=== PATIENT | male | born 1935 | race Caucasian/White ===

== ENCOUNTER 2023-04-05 13:17 | Outpatient (RCR) | payer MEDICARE, BC, SELFPAY | END 2023-04-05 23:59 | disposition home or self-care (01) | LOC: CRHB 13:17 | PROVIDERS: ATTENDING PHYSICIAN Internal Medicine Cardiovascular Disease; FAMILY PHYSICIAN Registered Nurse Oncology | DX: I25.10 Atherosclerotic heart disease of native coronary artery without angina pectoris (principal); Z95.5 Presence of coronary angioplasty implant and graft; I42.9 Cardiomyopathy, unspecified | CPT/HCPCS: G0422; G0423 ==

== ENCOUNTER 2023-05-03 14:14 | Outpatient (RCR) | payer MEDICARE, BC, SELFPAY ==
[2023-05-05 10:34] LABS: HDL Cholesterol 50 mg/dl; LDL Cholesterol, Calculated 43 mg/dl; Total Cholesterol 112 mg/dl (50-199); Triglyceride 95 mg/dl (10-149); Very Low Density Lipoprotein 19 mg/dl (0-30)
== END 2023-05-03 23:59 | disposition home or self-care (01) ==
LOC: CRHB 14:14
PROVIDERS: Internal Medicine Cardiovascular Disease; ATTENDING PHYSICIAN Internal Medicine Cardiovascular Disease; FAMILY PHYSICIAN Internal Medicine Geriatric Medicine
DX: I25.10 Atherosclerotic heart disease of native coronary artery without angina pectoris (principal); Z95.5 Presence of coronary angioplasty implant and graft; I42.9 Cardiomyopathy, unspecified
CPT/HCPCS: 80061; G0422; G0423

== ENCOUNTER → 2023-05-05 07:16 | Outpatient (REF) | payer MEDICARE, BC, SELFPAY ==
[2023-05-05 08:08] LABS: % Basophils 0.9 % (0-2); % Eosinophils 3.7 % (0-6); % Immature Granulocytes 2.1 % (0-0.5); % Lymphocytes 12.1 % (20.5-51.1); % Monocytes 12.7 % (1.7-9.3); % Neutrophils 68.5 % (42.2-75.2); Absolute Basophils 0.1 10^3/uL (0-0.2); Absolute Eosinophils 0.4 10^3/uL (0-0.7); Absolute Immature Granulocytes 0.2 10^3/uL (0-0.05); Absolute Lymphocytes 1.1 10^3/uL (1.2-3.4); Absolute Monocytes 1.2 10^3/uL (0.1-0.6); Absolute Neutrophils 6.4 10^3/uL (1.4-6.5); Hematocrit 32.7 % (39.0-52.0); Hemoglobin 10.3 g/dL (13.0-18.0); Mean Corp Hgb Conc. 31.5 g/dL (33.0-37.0); Mean Corpuscular Hgb 28.7 pg (27.0-31.0); Mean Corpuscular Volume 91.1 fL (80.0-94.0); Mean Platelet Volume 9.7 fL (7.4-10.4); Nucleated Red Blood Cells % 0 % (-); Platelet Count 396 10^3/uL (130-400); Red Blood Cell Count 3.59 10^6/uL (4.70-6.10); White Blood Cell Count 9.4 10^3/uL (4.8-10.8)
[2023-05-05 10:34] LABS: ALT (SGPT) 19 U/L (0-50); AST (SGOT) 34 U/L (17-59); Albumin 3.2 g/dl (3.5-5.0); Alkaline Phosphatase 151 U/L (38-126); Blood Urea Nitrogen 26 mg/dl (9-20); Calcium 9.4 mg/dl (8.4-10.2); Carbon Dioxide 28 mmol/L (22-30); Chloride 101 mmol/L (98-107); Glucose 109 mg/dl (70-99); Sodium 137 mmol/L (135-145); Total Bilirubin 0.6 mg/dl (0.2-1.3); Total Protein 5.9 g/dl (6.3-8.2); eGFR 58.17
== END ==
LOC: REG 07:16
PROVIDERS: ATTENDING PHYSICIAN Internal Medicine Hematology & Oncology; FAMILY PHYSICIAN Internal Medicine Geriatric Medicine
DX: C61 Malignant neoplasm of prostate (principal)
CPT/HCPCS: 36415; 80053; 84153; 85025

== ENCOUNTER 2023-05-31 13:13 | Outpatient (RCR) | payer MEDICARE, BC, SELFPAY | END 2023-05-31 23:59 | disposition home or self-care (01) | LOC: CRHB 13:13 | PROVIDERS: ATTENDING PHYSICIAN Internal Medicine Cardiovascular Disease; FAMILY PHYSICIAN Internal Medicine Geriatric Medicine | DX: I25.10 Atherosclerotic heart disease of native coronary artery without angina pectoris (principal); Z95.5 Presence of coronary angioplasty implant and graft | CPT/HCPCS: G0422; G0423 ==

== ENCOUNTER → 2023-06-02 07:02 | Outpatient (REF) | payer MEDICARE, BC, SELFPAY ==
[2023-06-02 07:55] LABS: % Basophils 0.9 % (0-2); % Eosinophils 6.6 % (0-6); % Immature Granulocytes 3.1 % (0-0.5); % Lymphocytes 14.9 % (20.5-51.1); % Monocytes 11.2 % (1.7-9.3); % Neutrophils 63.3 % (42.2-75.2); Absolute Basophils 0.1 10^3/uL (0-0.2); Absolute Eosinophils 0.5 10^3/uL (0-0.7); Absolute Immature Granulocytes 0.2 10^3/uL (0-0.05); Absolute Lymphocytes 1.1 10^3/uL (1.2-3.4); Absolute Monocytes 0.8 10^3/uL (0.1-0.6); Absolute Neutrophils 4.8 10^3/uL (1.4-6.5); Hematocrit 33.9 % (39.0-52.0); Hemoglobin 10.6 g/dL (13.0-18.0); Mean Corp Hgb Conc. 31.3 g/dL (33.0-37.0); Mean Corpuscular Hgb 28.8 pg (27.0-31.0); Mean Corpuscular Volume 92.1 fL (80.0-94.0); Mean Platelet Volume 9.6 fL (7.4-10.4); Nucleated Red Blood Cells % 0 % (-); Platelet Count 328 10^3/uL (130-400); Red Blood Cell Count 3.68 10^6/uL (4.70-6.10); Red Cell Dist. Width 16.7 % (11.5-14.5); White Blood Cell Count 7.5 10^3/uL (4.8-10.8)
[2023-06-02 08:27] LABS: ALT (SGPT) < 10 U/L (0-50); AST (SGOT) 19 U/L (17-59); Albumin 3.7 g/dl (3.5-5.0); Alkaline Phosphatase 121 U/L (38-126); Blood Urea Nitrogen 25 mg/dl (9-20); Calcium 9.4 mg/dl (8.4-10.2); Carbon Dioxide 25 mmol/L (22-30); Chloride 109 mmol/L (98-107); Glucose 122 mg/dl (70-99); Potassium 4.1 mmol/L (3.5-5.1); Sodium 139 mmol/L (135-145); Total Bilirubin 0.4 mg/dl (0.2-1.3); Total Protein 6.3 g/dl (6.3-8.2); eGFR > 60.00
== END ==
LOC: REG 07:02
PROVIDERS: ATTENDING PHYSICIAN Internal Medicine Hematology & Oncology; OTHER PHYSICIAN Internal Medicine Cardiovascular Disease; REFERRING PHYSICIAN Internal Medicine Geriatric Medicine
DX: C61 Malignant neoplasm of prostate (principal)
CPT/HCPCS: 36415; 80053; 84153; 85025

== ENCOUNTER → 2023-06-30 07:28 | Outpatient (REF) | payer MEDICARE, BC, SELFPAY ==
[2023-06-30 08:25] LABS: % Basophils 0.7 % (0-2); % Eosinophils 4.8 % (0-6); % Immature Granulocytes 1.6 % (0-0.5); % Lymphocytes 13.1 % (20.5-51.1); % Monocytes 10.4 % (1.7-9.3); % Neutrophils 69.4 % (42.2-75.2); Absolute Basophils 0.1 10^3/uL (0-0.2); Absolute Eosinophils 0.3 10^3/uL (0-0.7); Absolute Immature Granulocytes 0.1 10^3/uL (0-0.05); Absolute Lymphocytes 0.9 10^3/uL (1.2-3.4); Absolute Monocytes 0.7 10^3/uL (0.1-0.6); Absolute Neutrophils 4.9 10^3/uL (1.4-6.5); Hematocrit 34.6 % (39.0-52.0); Hemoglobin 10.8 g/dL (13.0-18.0); Mean Corp Hgb Conc. 31.2 g/dL (33.0-37.0); Mean Corpuscular Hgb 29.3 pg (27.0-31.0); Mean Platelet Volume 9.2 fL (7.4-10.4); Nucleated Red Blood Cells % 0 % (-); Platelet Count 370 10^3/uL (130-400); Red Blood Cell Count 3.68 10^6/uL (4.70-6.10); Red Cell Dist. Width 16.8 % (11.5-14.5); White Blood Cell Count 7.1 10^3/uL (4.8-10.8)
[2023-06-30 09:07] LABS: ALT (SGPT) < 10 U/L (0-50); AST (SGOT) 20 U/L (17-59); Albumin 3.7 g/dl (3.5-5.0); Alkaline Phosphatase 122 U/L (38-126); Blood Urea Nitrogen 22 mg/dl (9-20); Calcium 9.2 mg/dl (8.4-10.2); Carbon Dioxide 25 mmol/L (22-30); Chloride 106 mmol/L (98-107); Glucose 117 mg/dl (70-99); Potassium 4.7 mmol/L (3.5-5.1); Sodium 137 mmol/L (135-145); Total Bilirubin 0.4 mg/dl (0.2-1.3); Total Protein 6.2 g/dl (6.3-8.2); eGFR > 60.00
== END ==
LOC: REG 07:28
PROVIDERS: ATTENDING PHYSICIAN Internal Medicine Hematology & Oncology; FAMILY PHYSICIAN Internal Medicine Geriatric Medicine
DX: C61 Malignant neoplasm of prostate (principal)
CPT/HCPCS: 36415; 80053; 84153; 85025

== ENCOUNTER 2023-07-05 13:38 | Outpatient (RCR) | payer MEDICARE, BC, SELFPAY | END 2023-07-05 23:59 | disposition home or self-care (01) | LOC: CRHB 13:38 | PROVIDERS: ATTENDING PHYSICIAN Internal Medicine Cardiovascular Disease; FAMILY PHYSICIAN Internal Medicine Geriatric Medicine | DX: I25.10 Atherosclerotic heart disease of native coronary artery without angina pectoris (principal); Z95.5 Presence of coronary angioplasty implant and graft | CPT/HCPCS: G0422; G0423 ==

== ENCOUNTER 2023-07-07 09:56 | Outpatient (RCR) | payer MEDICARE, BC, SELFPAY | END 2023-07-07 23:59 | disposition home or self-care (01) | LOC: CRHB 09:56 | PROVIDERS: ATTENDING PHYSICIAN Internal Medicine Cardiovascular Disease; FAMILY PHYSICIAN Internal Medicine Geriatric Medicine | DX: I25.10 Atherosclerotic heart disease of native coronary artery without angina pectoris (principal) | CPT/HCPCS: G0422; G0423 ==

== ENCOUNTER → 2023-07-28 07:25 | Outpatient (REF) | payer MEDICARE, BC, SELFPAY ==
[2023-07-28 08:03] LABS: % Basophils 0.8 % (0-2); % Eosinophils 4.6 % (0-6); % Immature Granulocytes 1.5 % (0-0.5); % Lymphocytes 16.3 % (20.5-51.1); % Monocytes 11.4 % (1.7-9.3); % Neutrophils 65.4 % (42.2-75.2); Absolute Basophils 0.1 10^3/uL (0-0.2); Absolute Eosinophils 0.4 10^3/uL (0-0.7); Absolute Immature Granulocytes 0.1 10^3/uL (0-0.05); Absolute Lymphocytes 1.4 10^3/uL (1.2-3.4); Absolute Neutrophils 5.5 10^3/uL (1.4-6.5); Hematocrit 35.1 % (39.0-52.0); Mean Corp Hgb Conc. 31.3 g/dL (33.0-37.0); Mean Corpuscular Hgb 29.6 pg (27.0-31.0); Mean Corpuscular Volume 94.4 fL (80.0-94.0); Mean Platelet Volume 9.4 fL (7.4-10.4); Nucleated Red Blood Cells % 0 % (-); Platelet Count 434 10^3/uL (130-400); Red Blood Cell Count 3.72 10^6/uL (4.70-6.10); Red Cell Dist. Width 15.7 % (11.5-14.5); White Blood Cell Count 8.4 10^3/uL (4.8-10.8)
[2023-07-28 08:51] LABS: ALT (SGPT) < 10 U/L (0-50); AST (SGOT) 16 U/L (17-59); Albumin 3.7 g/dl (3.5-5.0); Alkaline Phosphatase 118 U/L (38-126); Blood Urea Nitrogen 28 mg/dl (9-20); Calcium 9.2 mg/dl (8.4-10.2); Carbon Dioxide 23 mmol/L (22-30); Chloride 105 mmol/L (98-107); Glucose 113 mg/dl (70-99); Potassium 4.5 mmol/L (3.5-5.1); Sodium 139 mmol/L (135-145); Total Bilirubin 0.4 mg/dl (0.2-1.3); Total Protein 6.3 g/dl (6.3-8.2); eGFR > 60.00
[2023-07-28 09:36] LABS: Glycohemoglobin (HgbA1c) 6.3 % (4.0-5.6)
== END ==
LOC: REG 07:25
PROVIDERS: ATTENDING PHYSICIAN Internal Medicine Hematology & Oncology; FAMILY PHYSICIAN Nurse Practitioner Family
DX: C61 Malignant neoplasm of prostate (principal); E11.59 Type 2 diabetes mellitus with other circulatory complications
CPT/HCPCS: 36415; 80053; 83036; 85025

== ENCOUNTER → 2023-08-24 07:59 | Outpatient (REF) | payer MEDICARE, BC, SELFPAY ==
[2023-08-24 08:54] LABS: % Basophils 0.5 % (0-2); % Eosinophils 4.7 % (0-6); % Immature Granulocytes 3.1 % (0-0.5); % Lymphocytes 9.2 % (20.5-51.1); % Monocytes 9.5 % (1.7-9.3); Absolute Basophils 0.1 10^3/uL (0-0.2); Absolute Eosinophils 0.4 10^3/uL (0-0.7); Absolute Immature Granulocytes 0.3 10^3/uL (0-0.05); Absolute Lymphocytes 0.8 10^3/uL (1.2-3.4); Absolute Monocytes 0.9 10^3/uL (0.1-0.6); Absolute Neutrophils 6.7 10^3/uL (1.4-6.5); Hematocrit 31.8 % (39.0-52.0); Mean Corp Hgb Conc. 31.4 g/dL (33.0-37.0); Mean Corpuscular Hgb 29.4 pg (27.0-31.0); Mean Corpuscular Volume 93.5 fL (80.0-94.0); Mean Platelet Volume 9.6 fL (7.4-10.4); Nucleated Red Blood Cells % 0 % (-); Platelet Count 407 10^3/uL (130-400); White Blood Cell Count 9.1 10^3/uL (4.8-10.8)
[2023-08-24 10:01] LABS: ALT (SGPT) < 10 U/L (0-50); AST (SGOT) 19 U/L (17-59); Albumin 3.3 g/dl (3.5-5.0); Alkaline Phosphatase 107 U/L (38-126); Blood Urea Nitrogen 27 mg/dl (9-20); Calcium 9.5 mg/dl (8.4-10.2); Carbon Dioxide 26 mmol/L (22-30); Chloride 109 mmol/L (98-107); Glucose 107 mg/dl (70-99); Potassium 4.4 mmol/L (3.5-5.1); Sodium 142 mmol/L (135-145); Total Bilirubin 0.3 mg/dl (0.2-1.3); Total Protein 5.7 g/dl (6.3-8.2); eGFR > 60.00
[2023-08-24 10:20] LABS: Free T4 1.24 ng/dl (0.78-2.19)
[2023-08-24 10:33] LABS: TSH 2.51 uIU/ml (0.47-4.68)
== END ==
LOC: REG 07:59
PROVIDERS: ATTENDING PHYSICIAN Internal Medicine Hematology & Oncology; FAMILY PHYSICIAN Internal Medicine Geriatric Medicine; REFERRING PHYSICIAN Nurse Practitioner Family
DX: C61 Malignant neoplasm of prostate (principal); E03.8 Other specified hypothyroidism
CPT/HCPCS: 36415; 80053; 84153; 84439; 84443; 85025

== ENCOUNTER → 2023-09-20 07:20 | Outpatient (REF) | payer MEDICARE, BC, SELFPAY ==
[2023-09-20 09:35] LABS: ALT (SGPT) < 10 U/L (0-50); AST (SGOT) 18 U/L (17-59); Albumin 3.4 g/dl (3.5-5.0); Alkaline Phosphatase 133 U/L (38-126); Blood Urea Nitrogen 25 mg/dl (9-20); Calcium 9.7 mg/dl (8.4-10.2); Carbon Dioxide 24 mmol/L (22-30); Chloride 108 mmol/L (98-107); Glucose 122 mg/dl (70-99); Potassium 4.7 mmol/L (3.5-5.1); Sodium 140 mmol/L (135-145); Total Bilirubin 0.3 mg/dl (0.2-1.3); Total Protein 5.9 g/dl (6.3-8.2); eGFR > 60.00
== END ==
LOC: REG 07:20
PROVIDERS: ATTENDING PHYSICIAN Internal Medicine Hematology & Oncology; FAMILY PHYSICIAN Internal Medicine Geriatric Medicine
DX: C61 Malignant neoplasm of prostate (principal)
CPT/HCPCS: 36415; 80053

== ENCOUNTER → 2023-10-14 07:41 | Outpatient (REF) | payer MEDICARE, BC, SELFPAY ==
[2023-10-14 08:35] LABS: % Basophils 0.6 % (0-2); % Eosinophils 3.6 % (0-6); % Immature Granulocytes 4.4 % (0-0.5); % Monocytes 8.3 % (1.7-9.3); % Neutrophils 76.1 % (42.2-75.2); Absolute Basophils 0.1 10^3/uL (0-0.2); Absolute Eosinophils 0.5 10^3/uL (0-0.7); Absolute Immature Granulocytes 0.5 10^3/uL (0-0.05); Absolute Lymphocytes 0.9 10^3/uL (1.2-3.4); Absolute Neutrophils 9.4 10^3/uL (1.4-6.5); Hematocrit 27.7 % (39.0-52.0); Hemoglobin 8.6 g/dL (13.0-18.0); Mean Corpuscular Hgb 29.5 pg (27.0-31.0); Mean Corpuscular Volume 94.9 fL (80.0-94.0); Mean Platelet Volume 9.4 fL (7.4-10.4); Nucleated Red Blood Cells % 0 % (-); Platelet Count 493 10^3/uL (130-400); Red Blood Cell Count 2.92 10^6/uL (4.70-6.10); Red Cell Dist. Width 16.2 % (11.5-14.5); White Blood Cell Count 12.4 10^3/uL (4.8-10.8)
[2023-10-14 09:01] LABS: ALT (SGPT) < 10 U/L (0-50); AST (SGOT) 45 U/L (17-59); Albumin 3.4 g/dl (3.5-5.0); Alkaline Phosphatase 167 U/L (38-126); Blood Urea Nitrogen 23 mg/dl (9-20); Calcium 8.8 mg/dl (8.4-10.2); Carbon Dioxide 26 mmol/L (22-30); Chloride 105 mmol/L (98-107); Glucose 113 mg/dl (70-99); Potassium 4.5 mmol/L (3.5-5.1); Sodium 138 mmol/L (135-145); Total Bilirubin 0.3 mg/dl (0.2-1.3); eGFR > 60.00
== END ==
LOC: REG 07:41
PROVIDERS: ATTENDING PHYSICIAN Internal Medicine Hematology & Oncology; FAMILY PHYSICIAN Internal Medicine Geriatric Medicine
DX: C61 Malignant neoplasm of prostate (principal); K59.00 Constipation, unspecified; M54.50 Low back pain, unspecified
CPT/HCPCS: 36415; 80053; 84153; 85025

== ENCOUNTER → 2023-10-15 13:08 | Outpatient (REF) | payer MEDICARE, BC, SELFPAY ==
--- NOTE | 2023-10-15 14:00 | CARDSERVLU ---
Echocardiogram with Lumason completed after protocol screening completed. Allergies verified.
Patent IV site: __left FA___
IV site flushed with 0.9% NaCl pre and post administration.
Diluted bolus method utilized to enhance visualization of ventricular weiss.
Total volume given: ___3.5_ mL
Patient tolerated all procedures well without complications.
#22 jaya placed left FA. Lumason given. INT removed. dsg applied. pressure held. No bleeding noted.
== END ==
LOC: RCS 13:08
PROVIDERS: ATTENDING PHYSICIAN Internal Medicine Cardiovascular Disease; FAMILY PHYSICIAN Internal Medicine Geriatric Medicine
DX: I25.10 Atherosclerotic heart disease of native coronary artery without angina pectoris (principal)
CPT/HCPCS: 93306; Q9950

== ENCOUNTER 2023-10-27 01:09 | Inpatient (IN) | payer MEDICARE, BC, SELFPAY ==
[2023-10-27] VITALS (25 sets, daily range): BP systolic 107–165; BP diastolic 36–133; BMI 27.0; BMI 27.1
--- NOTE | 2023-10-27 00:21 | ED.GENMED ---
History of Present Illness
General
Chief Complaint: Weakness
Source: patient
Exam Limitations: none
Time Seen by Provider: 10/27/23 00:11
History of Present Illness
History of Present Illness:
This is a 88 year old male that is brought in by ambulance with c/o abd pain and vomiting. States that yesterday he did not eat kandi. Then today he eat one piece of toast, one piece of boloney, 2 waffles for dinner and around 9pm he had a milk
shake and by 9:30pm he vomited. States that it feels like someone kicked him in the gut. States that the wound on his right lower leg was from pulling his socks on and off. Denies any fever, chills, chest pain, SOB, diarrhea, black or bloody stool,
Headache, dizziness, urinary burning.
Past History
Past History
ED Past Medical History: Asthma, CAD, Cancer (Prostate CA), CHF, CVA, HTN, Hypercholesterolemia, NIDDM, Hypothyroidism and Other (BPH, pleural effusion drained, Back pain, PNA, Thyroid nodules)
ED Past Surgical History: Cardiac (Stents X 5), Orthopedic (right total knee, Back surgery, ), Tonsilectomy, Urological (TURP) and Other (right and left cataracts, TURP, hernia repair)
Social History
Tobacco: Non-smoker
Alcohol: Occasional
Drug: None
Personal:
Living: with family
Employment: Retired
Family History
Family History: Other (non contrib)
Review of Systems
Review of Systems
All Other Systems: ROS reviewed and negative except as documented in HPI and ROS
Constitutional: Reports no symptoms; Denies fever or chills
EENT: Reports no symptoms
Respiratory: Reports no symptoms; Denies cough or trouble breathing
Cardiac: Reports no symptoms; Denies chest pain
ABD/GI: Reports abdominal pain, nausea and vomiting; Denies diarrhea, bloody stools or black stools
: Reports no symptoms; Denies dysuria, frequency or urgency
Musculoskeletal: Reports no symptoms
Skin: Reports other (Open wound on the right lower leg)
Neurological: Reports no symptoms; Denies dizzy or headache
Psychiatric: Reports no symptoms
Phy Exam
General Physical Exam
General Presentation: no apparent distress
General age: appears stated age
General Skin: warm, dry and pale
General Habitus: elderly
General Mental: alert
General Hydration: appears well hydrated
ENT Exam
ENT Exam: pharynx normal and neck supple
Eye Exam
Eye Exam: EOMI
Cardiovascular Exam
Cardiovascular Exam: regular rate/rhythm and normal peripheral pulses
Pulmonary Exam
Pulmonary Exam: lungs clear, no respiratory distress, no rales, chest non tender, no crackles, no rhonchi, no wheezing and no cough
Gastrointestinal Exam
Gastrointestinal Exam: soft, no organomegaly, no pulsatile mass, non distended, tender (Mid abd tenderness with palpation) and other (Very hypoactive bowel sounds, Stool brown hem negative. )
Musculoskeletal Exam
Musculoskeletal Exam: full ROM and edema (+2 pitting edema of the lower legs)
Skin Exam
Skin Exam: normal color, warm/dry, no rash, no petechia and other (Open wound on the right lower leg skin tear)
Psychiatric Exam
Psychiatric Exam: normal mood/affect
Course
Orders/Labs/Results
Orders:
Orders
10/27/23 00:11
Electrocardiogram (*1) Urgent
Reason for Study: Abdominal Pain
EKG- Treatment ONCE
IV Insert/Care/Rem.- Treatment PRN
10/27/23 00:21
CT Abd/pelvis W Iv Cont Urgent
Comment:
Reason For Exam: mid abd pain, vomiting,
0.9% Sodium Chloride 500 ml [Nss] 500 ml IV BOLUS
Ondansetron Injectable [Zofran] 4 mg IV NOW STA
10/27/23 00:27
Type+Screen Urgent
Complete Blood Count/With Diff Urgent
Comprehensive Metabolic Panel Urgent
Lipase Urgent
Manual Differential Urgent
10/27/23 00:35
Troponin I Urgent
10/27/23 00:46
* Blood Bank Products Urgent
Blood Bank Products: *Packed RBC Leuko(PRBC's)
Quantity: 1
Transfuse Today: Yes
Reason: Anemia
10/27/23 00:50
Lorazepam [Ativan] 0.5 mg IV NOW STA
10/27/23 00:57
Admit/Transfer Patient As Directed
Co-Sign Provider:
Level of Care: Inpatient admission
Assign to:: Telemetry
Physician / Group: andriyy
Diagnosis: severe anemia , abdominal pain
Reason for Telemetry: Other
Other Reason for Telemetry: severe anemia
Date to Stop Telemetry: 10/29/23
Time to Stop Telemetry: 11:00
Reason for Hospitalization: severe anemia and abdo pain .
Expected length of stay greater than two midnights?: Yes
ELOS- Estimated Length of Stay in days: 2
I certify the patient meets the requirements for IP care: Yes
10/27/23 00:59
Code Status As Directed
Resuscitation Status: Full Code
10/27/23 01:12
0.9% Sodium Chloride 1000 ml [Nss] 1,000 ml IV 40 mls/hr
Bisacodyl [Dulcolax] 10 mg RECTAL [id number] PRN
Docusate W/Senna [Senokot-S] 1 tablet PO BIDPRN PRN
Ondansetron Injectable [Zofran] 4 mg IV Q6HPRN PRN
Polyethylene Glycol Powder [Miralax] 17 grams PO DAILYPRN PRN
10/27/23 01:12
Consult Notification Routine
Specialty to Notify: Gastroenterology
GASTROINTESTINAL CONSULT Routine
Consulting Provider: Hiram Harrison
Was physician already notified: No
Reason for consult: severe anemia ? GI eval
Activity As Directed
Activity Level: With Assistance
Intake/ Output As Directed
Frequency: Per unit guidelines
Pneumatic Compression Sleeves As Directed
Type: Knee high
Vital Signs As Directed
Frequency: Per unit guidelines
Weight As Directed
Frequency: Daily
DX Deep Vein Thrombosis Video Routine
10/27/23 Breakfast
NPO
Allow oral meds: Yes
Allow clear liquids: Sips of Clears
NPO with Ice Chips: Yes
Basic Metabolic Panel IN AM
Complete Blood Count/No Diff IN AM
Ferritin IN AM
Levothyroxine [Synthroid] 137 mcg PO DAILY @ 0600
10/29/23 11:00
DC Protocol for Telemetry ONCE
Abnormal Lab Results
10/27/23
00:27
WBC 16.3 H 10^3/uL
(4.8-10.8)
RBC 1.94 L 10^6/uL
(4.70-6.10)
Hgb 5.6 L* g/dL
(13.0-18.0)
Hct 17.3 L* %
(39.0-52.0)
MCHC 32.4 L g/dL
(33.0-37.0)
RDW 16.8 H %
(11.5-14.5)
Plt Count 444 H 10^3/uL
(130-400)
Abs Neuts (Manual) 14.0 H 10^3/uL
(1.4-6.5)
Segmented Neutrophils 84 H %
(42-75)
Lymphocytes (Manual) 2 L %
(20-51)
Carbon Dioxide 20 L mmol/L
(22-30)
BUN 41 H mg/dl
(9-20)
Glucose 186 H mg/dl
(70-99)
Total Protein 4.9 L g/dl
(6.3-8.2)
Albumin 2.7 L g/dl
(3.5-5.0)
Crossmatch IS Only See Detail
10/27/23 00:27
10/27/23 00:27
Leukocytosis, H/H very low, plt slightly elevated. Dehdyration. Glucose nonfasting. Total protein low. albumin low. Lipase normal at 173, Troponin 0.032, Pro-BNP 4480
Vital Signs
Initial and Last Documented VS:
Initial Vital Signs
Temp Pulse Resp BP Pulse Ox
97.6 F 87 14 113/46 97
10/27/23 00:12 10/27/23 00:12 10/27/23 00:12 10/27/23 00:12 10/27/23 00:12
Last Documented Vital Signs
Temp Pulse Resp BP Pulse Ox
97.6 F 88 19 113/46 97
10/27/23 00:12 10/27/23 00:15 10/27/23 00:15 10/27/23 00:13 10/27/23 00:15
MDM/Problems Addressed
Differential Diagnosis Includes:
Viral syndrome.
MDM/Problems Addressed:
This is a 88 year old male that comes in by ambulance with c/o of vomiting and abd pain. States that it feels like someone kicked him in the gut. States that he did not eat 2 days ago and then yesterday he had a piece of toast, Baloney for lunch, 2
waffles for dinner and a milk shake at 9pm and then he started to vomiting at 9:30pm.
Will get labs and CT abd. IV fluids and medicate for nausea.
Chronic conditions affecting care:
NA
Acute Exacerbation and/or Progression of Chronic Illness:
NA
*Radiology
Radiology exam reviewed: radiology read reviewed (CT night hawk- thickening and stranding along the descending duodenum, may represent duodenitis versus pancreatitis. Known duodenal diverticulum as seen on prior dated 10/13/2021. Consider correlation
with signs or symptoms of peptic ulcer disease. No bowel obstruction. Cholelithiasis without ), all reviewed NAD by ED Provider (CT cont- evidence of cholecystitis. Norml appendix. Incidentals:Diverticulosis without evidence of diverticulitis.
Moderate stool burden. 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 NO obstructive uropathy. No hepatic or pancreatic mass. Mo abdominal aortic aneurysm. Extensive sclearotic) and other (CT cont- appearance of the axial and appendicular
skeleton, increased from prior. Bibasilar atelectasis. Calcified coronary atherosclerosis. No acute abnormality with in the visualized soft tissues. )
*Pulse Oximetry
Patient hypoxic: no
*EKG
Interpreted by ED Provider?: Yes
Heart Rate: 83
Rate: normal
Rhythm: sinus
[place]: left axis deviation
Interval: normal interval
QRS Pattern: normal QRS
Ischemia: T-wave inversion (Checked by Dr. Shields)
*Jet Wiper Interpretation
Rate: normal
Heart Rate: 82
Rhythm: sinus
*Critical Care Note
Total Time (30-74mins, 75-104mins- exclusive of procedures): Not Applicable
ED Attending Note
-
Portions of this chart may have been created with voice recognition software.� Occasional wrong word or��sound alike� substitutions may have occurred due to the inherent limitations of voice recognition software.
Discharge Plan
Departure
Patient Disposition: Admit
Date of Disposition: 10/27/23
Time of Disposition: 00:49
Admit to: Telemetry
Presentation/result/management discussed w/ accepting MD/DO: Hospitalist
Patient with high blood pressure during this ER visit?: No
Condition: Good
Covid-19: Not Applicable
Discharge Problem:
Anemia, Abdominal pain, Hemoglobin low
Interventions
Interventions:
*Risk Screen - Suicide Last Done: 10/27/23 00:12
*General Assessment Last Done: 10/27/23 00:12
*Neglect/Abuse Screening Last Done: 10/27/23 00:12
ED- Fall Risk Assessment Last Done: 10/27/23 02:33
*ED COVID-19 Vaccine History Last Done: 10/27/23 00:12
*Nursing Disposition Last Done: 10/27/23 02:33
ED- Cardiac Assessment Last Done: 10/27/23 00:23
ED- Neurological Assessment Last Done: 10/27/23 00:23
ED- Pulmonary Assessment Last Done: 10/27/23 00:23
Discharge Date and Time
Discharge Date/Time: 10/27/23 02:33
[2023-10-27] MEDS: ZOFRAN 4 MG IV ×3 (00:30→14:01)
[2023-10-27] MEDS: NSS 500 IV (00:30)
[2023-10-27 00:41] LABS: Hematocrit 17.3 % (39.0-52.0); Hemoglobin 5.6 g/dL (13.0-18.0); Mean Corp Hgb Conc. 32.4 g/dL (33.0-37.0); Mean Corpuscular Hgb 28.9 pg (27.0-31.0); Mean Corpuscular Volume 89.2 fL (80.0-94.0); Mean Platelet Volume 9.8 fL (7.4-10.4); Platelet Count 444 10^3/uL (130-400); Red Blood Cell Count 1.94 10^6/uL (4.70-6.10); Red Cell Dist. Width 16.8 % (11.5-14.5); White Blood Cell Count 16.3 10^3/uL (4.8-10.8)
[2023-10-27 00:46] LABS: ALT (SGPT) < 10 U/L (0-50); AST (SGOT) 21 U/L (17-59); Albumin 2.7 g/dl (3.5-5.0); Alkaline Phosphatase 114 U/L (38-126); Blood Urea Nitrogen 41 mg/dl (9-20); Calcium 8.9 mg/dl (8.4-10.2); Carbon Dioxide 20 mmol/L (22-30); Chloride 107 mmol/L (98-107); Estimated Creatinine Clearance 42 ml/min; Glucose 186 mg/dl (70-99); Lipase 173 U/L (23-300); Potassium 4.1 mmol/L (3.5-5.1); Sodium 139 mmol/L (135-145); Total Bilirubin 0.3 mg/dl (0.2-1.3); Total Protein 4.9 g/dl (6.3-8.2); eGFR > 60.00
[2023-10-27] MEDS: ATIVAN IV (01:01)
[2023-10-27] MEDS: ATIVAN 0.5 MG IV ×2 (01:20→03:49)
[2023-10-27 02:47] LABS: Anisocytosis 1+; Band Neutrophils 2 % (0-3); Eosinophils 2 % (0-6); Hypochromasia 1+; Lymphocytes 2 % (20-51); Metamyelocytes 5 % (-); Monocytes 2 % (2-9); Myelocytes 2 % (-); Normal RBC Morphology No; Nucleated Red Blood Cells 1 (-); Platelets Checked Yes; Polychromasia Occasional; Segmented Neutrophils 84 % (42-75); Toxic Granulation Occassional
[2023-10-27 02:48] LABS: Ovalocytes 1+; Target Cells Occasional; Tear Drop Red Blood Cells Occasional; Total Cells Counted 100
[2023-10-27 02:51] LABS: Troponin I 0.032 ng/ml
--- NOTE | 2023-10-27 02:55 | HPS.HSE ---
Family Physician
-
Family Physician: Michel Parish
Chief Complaint
-
abdominal pain
History of Present Illness
88M HX CHF, CAD with stents on ASA ,CVA, HTN, T2DM, TURP seen at ER for evaluation of abd pain and vomiting,
- [facility]
- No PO intake yesterday
- Today , he had meals around 9 pm followed by vomiting
- associated with onset of acute abdominal pain - felt like kicking in the tummy
ROS
Denies any fever, chills, chest pain, SOB, diarrhea, black or bloody stool, Headache, dizziness, urinary burning.
Medical History
Past Medical History
Past Medical History: Reports Other
Additional Past Medical History:
NIDDM
Asthma
CAD
Prostate CA
CHF
CVA
HTN
Hypercholesterolemia
Hypothyroidism a
BPH
pleural effusion drained
Back pain
PNA
Thyroid nodules
Past Surgical History: Reports Other
Additional Past Surgical History:
CAD with Stents X 5
Right total knee
Back surgery
Tonsillectomy
TURP
Right and left cataracts
Hernia repair)
Social History
Tobacco: Non-smoker
Alcohol: None
Drug: None
Family History
Family History: Not pertinent
Allergies / Home Medications
Allergies reflects when Allergies were last updated in [facility] ([facility]
Home Medications with original date entered in [facility] ([facility])
Allergy/Medication List:
Allergies
Allergy/AdvReac Type Severity Reaction Status Date / Time
grass pollen Allergy SNEEZING, Verified 02/02/23 13:05
eyes
watering
house dust Allergy SNEEZING, Verified 02/02/23 13:05
eyes
watering
ragweed pollen Allergy SNEEZING, Verified 02/02/23 13:05
eyes
watering
HORSE LICE Allergy Unknown Uncoded 02/02/23 13:05
Home Medications
atorvastatin 40 mg tablet 40 mg PO QPM High cholesterol 11/02/19
aspirin 81 mg tablet,delayed release 81 mg PO DAILY 07/23/20
acetaminophen 500 mg tablet (Tylenol Extra Strength) 1,000 mg PO TID 12/22/22
albuterol sulfate 90 mcg/actuation aerosol inhaler 2 puff inhalation R Q4HPRN PRN sob 12/22/22
calcium carbonate (Calcium 600) 1,200 mg PO BID PRN GERD 12/22/22
levothyroxine 137 mcg tablet 137 mcg PO DAILY 12/22/22
losartan 100 mg tablet 100 mg PO DAILY 12/22/22
therapeutic multivitamin 1 tab PO DAILY 12/22/22
carvedilol 3.125 mg tablet 3.125 mg PO BID #60 tabs 12/26/22
furosemide 40 mg tablet 40 mg PO DAILY #30 tabs 12/26/22
fluticasone propionate 50 mcg/actuation nasal spray,suspension 1 spray intranasal Q12H PRN nasal congestion 02/02/23
ondansetron 4 mg disintegrating tablet 4 mg PO Q6H PRN nausea 02/02/23
tramadol 50 mg tablet 50 mg PO Q6H PRN pain rt low back 02/02/23
nitroglycerin 0.4 mg sublingual tablet 0.4 mg sublingual [id number] PRN chest pain #25 tabs 02/03/23
amlodipine 10 mg tablet 10 mg PO DAILY 10/27/23
cholecalciferol (vitamin D3) 50 mcg (2,000 unit) tablet (Vitamin D3) 50 mcg PO DAILY 10/27/23
hydralazine 25 mg tablet 25 mg PO TID 10/27/23
Review of Systems
-
Constitutional: Reports No Symptoms
EENT: Reports No Symptoms
Respiratory: Reports No Symptoms
Cardiac: Reports No Symptoms
Abdomen/GI: Reports See HPI, Abdominal Pain and Nausea
: Reports No Symptoms
Musculoskeletal: Reports No Symptoms
Skin: Reports No Symptoms
Neurological: Reports No Symptoms
Endocrine: Reports No Symptoms
Hematologic/Lymphatic: Reports No Symptoms
Psych: Reports No Symptoms
Physical Exam
Vital Signs
Vital Signs
Temp Pulse Resp BP Pulse Ox
97.6 F 88 19 113/46 97
10/27/23 00:12 10/27/23 00:15 10/27/23 00:15 10/27/23 00:13 10/27/23 00:15
Physical Exam
General: Well Developed, Conversant and Appears Chronically Ill
HEENT: NormoCephalic, Anicteric, Moist mucous membranes and Other (pale conjunctiva and very pale complexion )
Respiratory: Clear; No Wheezes
Cardiac: S1/S2, Regular Rhythm and JVD (7 - 8 cm )
Breast: Deferred by me
GI: Soft, Non Tender, Non Distended and Normal Bowel Sounds
Genito-urinary: Deferred by me
Musculoskeletal: Edema, Left Lower Extremity, Edema, Right Lower Extremity and Other (weeping open leg wounds noted )
Neuro: AO x 3 and No Motor Deficits
Psych: Calm
Laboratory Results
-
Laboratory Results
Total Bilirubin 0.3 mg/dl (0.2-1.3) 10/27/23 00:27
AST 21 U/L (17-59) 10/27/23 00:27
ALT < 10 U/L (0-50) 10/27/23 00:27
Alkaline Phosphatase 114 U/L (38-126) 10/27/23 00:27
Troponin I 0.032 ng/ml 10/27/23 00:35
Lipase 173 U/L (23-300) 10/27/23 00:27
Data Reviewed
-
CT Scan: Report Reviewed by me
Medical Tests (Nuc Med, Echo, EKG etc): Report Reviewed by me
Lab Data: Labs Reviewed by me
Old Records: Reviewed
Impression/Plan
-
Data
WCC 16
Hgb 5.6 baseline 10s
Plt 444
nl eGFR
Alb 2.7
EKG
NORMAL SINUS RHYTHM
NONSPECIFIC T WAVE ABNORMALITY
ABNORMAL ECG
WHEN COMPARED WITH ECG OF 03-FEB-2023 04:08,
NONSPECIFIC T WAVE ABNORMALITY NOW EVIDENT IN INFERIOR LEADS
NONSPECIFIC T WAVE ABNORMALITY, WORSE IN ANTEROLATERAL LEADS
10/15/23 TTE
LVEF 40 to 45%
Global diffuse hypokinesis.
Stage II diastolic dysfunction
Normal right ventricular size and function.
Mild MR
Mild AR
Moderate TR
Estimated PAP 73 mmHg assuming a right atrial pressure of 3 mmHg.
Compared to prior from December 23, 2022, on [id number] comparison overall LV
function is slightly improved estimated EF of 40 to 45%; previously EF was
moderately reduced and estimated at 40%.
10/27/23 CT AP
- ? duodenitis vs pancreatitis
- known duodenum diverticulum
- no obstructive uropathy
- no hepatic or pancreatic mass
- no abdominal aneurysm
- bibasilar atx
ASSESSMENT & PLAN
Acute abdominal pain : ischemic BW due to passive venosu congestion due to acute HF ?
nl lipase
CT with questionable ? duodenitis vs. pancreatitis
- clear and ADAT
- check LA
- Held DAPL
- GI consult
Profound interval severe anemia with Hgb 5.6 of unclear etiology: ?hemodilation due to volume exapansion >
HX ACDz with baseline Hgb 10s
NEG HoB brown stool
- Blood consented
- 2 PRBCs per ER
- IV Lasix 40mg in between each unit of PRBC
- GI consult Evaluation of EGD/ Colonoscope ?
Volume expansion
Suspect Acute on chr HFrEF with LVEF 40-45 vs chr HFmEF
Stage II diastolic dysfunction s
Known chronic severe PHT with PAP 73mmHg
- IV Lasix 40 daily
- on home O2 2 L
- check proBNP
- CYCLE DIRECTOR spironolactone, Losartan and hydralazine
- cont carvedilol
- daily weight
- CBC Card consult
Essential HTN
- cont. Losartan, hydralazine and Aldactone with hold index
HX CVA 2012;
- stable
- held DAPL due to severe anemia and pending GI w/i and atorvastatin
Right carotid artery stenosis (moderate carotid plaque)
- cont Statin
Hypothyroidism
- cont Synthroid
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
- f/u with [place]
DVT Px: SCD
Code: Full
IP TLM
[2023-10-27 02:59] LABS: Glucose - Point of Care 161 mg/dl (70-99)
--- NOTE | 2023-10-27 03:03 | DOWNTIME ---
There was a [employer] Downtime on 10/27/2023 from 0100 to 10/27/2023 at 0252. Downtime documentation of patient's care, including medication administrations, has been reconciled in the electronic record per guidelines. Refer to the
patient's paper chart under the miscellaneous tab to see printed paper medication records and downtime forms.
--- NOTE | 2023-10-27 03:09 | PTCARENOTE ---
received pt from ED at approx 0300 with PRBC infusing. pt aaox3, vss, oriented to room. admission completed as documented. wound noted to RLE that pt reports is from 'taking his socks on/off.' pt's belongings at bedside, call white within reach
[2023-10-27 03:17] LABS: NT-proBNP 4480 pg/ml
[2023-10-27] MEDS: NSS (PRESERVATIVE FREE) 0.25 ML IV (03:49)
--- NOTE | 2023-10-27 04:08 | PTCARENOTE ---
Pt rang call white c/o nausea, vomited 900mL of coffee ground emesis. VSS. BHUMIKA Schumacher notified
[2023-10-27] MEDS: PROTONIX 100 IV ×2 (04:21→14:53)
[2023-10-27] MEDS: PROTONIX IV 80 MG IV (04:22)
--- NOTE | 2023-10-27 04:37 | PTCARENOTE ---
received orders to transfer pt to IMU room [id number], report given to NATE Inman
--- NOTE | 2023-10-27 05:00 | PTCARENOTE ---
Pt received from floor RN. Pt NSR on monitor. AAO, drowsy. getting Protonix via left hand IV.
[2023-10-27] MEDS: LASIX 20 MG IV ×2 (05:06→12:29)
--- NOTE | 2023-10-27 05:18 | W.PN.UPDATE ---
Update Note
Progress Note Update
6335 reports that pt is anxious and antsy. States he gets this way sometimes at home but can move around move at home. Currently more confined to bed receiving blood transfusion. Received ativan iv in ED with min help. Will try another dose.
0400 RN reported pt vomited approx 900ml Coffee ground emesis. Zofran given and initiated on protonix gtt
Discussed pt with dr jacobo- transfer to imu for closer monitoring.
[2023-10-27 06:11] LABS: Blood Urea Nitrogen 46 mg/dl (9-20); Calcium 8.5 mg/dl (8.4-10.2); Carbon Dioxide 22 mmol/L (22-30); Chloride 107 mmol/L (98-107); Estimated Creatinine Clearance 48 ml/min; Glucose 128 mg/dl (70-99); Iron 78 ug/dl (49-181); Potassium 4.1 mmol/L (3.5-5.1); Sodium 138 mmol/L (135-145); eGFR > 60.00
[2023-10-27 06:12] LABS: Hematocrit 18.6 % (39.0-52.0); Hemoglobin 6.2 g/dL (13.0-18.0); Mean Corp Hgb Conc. 33.3 g/dL (33.0-37.0); Mean Corpuscular Hgb 29.1 pg (27.0-31.0); Mean Corpuscular Volume 87.3 fL (80.0-94.0); Mean Platelet Volume 9.8 fL (7.4-10.4); Platelet Count 355 10^3/uL (130-400); Red Blood Cell Count 2.13 10^6/uL (4.70-6.10); Red Cell Dist. Width 15.8 % (11.5-14.5)
[2023-10-27 06:20] LABS: Percent Saturation 28 % (20-50); Total Iron Binding Capacity 272 ug/dl (261-462)
[2023-10-27] MEDS: SYNTHROID 137 MCG PO (06:27)
--- NOTE | 2023-10-27 06:35 | W.PN.UPDATE ---
Update Note
Progress Note Update
hgb 5.6, Ordered to give 2 units of PRBC's total, written order during down time is at the Blood-bank. Will order one unit as the written order hasn't seen on the [facility]. Patient should receive total of 2 units. Blood bank made aware.
[2023-10-27 07:09] LABS: Ferritin 19.2 ng/ml (17.9-464.0)
--- NOTE | 2023-10-27 08:31 | CON.GI ---
Addendum entered and electronically signed by BHUMIKA Del Real 10/27/23 12:12:
stable from cards to proceed. Reviewed with nursing. Pt unsure if he was on Plavix prior to admission. ? yesterday possible last dose or within week.
Addendum entered and electronically signed by Hiram Harrison MD 10/27/23 09:56:
I saw and examined the patient.
The AIRLINE ATTENDANT or PA's note was reviewed and I agree with the note.
Comment: 88yo male presents with abd pain, CGE and Hgb 5.6, down from recent Hgb 8.6 on 10/14/23. CT shows duodenitis. takes motrin for back pain. No prior EGD or colonoscopy. BUN elevated 46.
REC:
Getting 2nd unit PRBC
Plan EGD today if Hgb reasonable after transfusion
Likely DU from NSAIDs causing UGIB
Protonix gtt
NPO
Original Note:
Consultation
-
Date/Time Consultation Requested: 10/27/23 0115
Date/Time Consultation Performed: 10/27/23 0830
Requesting Provider: Flash Harrington MD
Performing Provider: BHUMIKA Veronica, Hiram Harrison MD
Reason for Consultation: anemia
Medical History
Chief Complaint / HPI
History of Present Illness:
Pt is a 88yo with multiple med problems- metastatic prostate CA, CAD stents on ASA, CVA, NIDDM, asthma with onset of abdominal with nausea and vomiting coffee ground emesis after admission with heme neg brown stool on rectal in ER. Pt repots
abdominal pain is lower abdomen constant about 6/10 for last few days. CT preliminary report with noted duodenitis vs pancreatitis and know duodenal diverticulum. He is also noted with hbg 5.6 on admission with drop from 8.6 on 10/13 with BUN up
to 46. He admits to taking Motrin several tablets daily for back pain. Pt denies hx EGD or colonoscopy in past.
Pt denies dysphagia, GERD, diarrhea, constipation, or rectal bleeding.
Past Medical History
Past Medical History: Asthma, CAD, Cancer (metastatic prostate CA ), CHF, CVA, HTN, Hypercholesterolemia, Hypothyroidism, NIDDM and Other (BPH, pleural effusion , back pain, PNA, thyroid nodules)
Past Surgical History: Cardiac (stents), Orthopedic (right TKR, back surgery), Tonsilectomy, Urological (TURP) and Other (cataracts sx, hernia repair)
Social History
Tobacco: Non-Smoker
Alcohol: Occasional
Drug: None
Personal:
Living: Alone ( at [facility])
Employment: Retired
Family History
Family History: Other (no family hx colon CA or polyps)
Allergies / Home Medications
Allergy/AdvReac Type Severity Reaction Status Date / Time
grass pollen Allergy SNEEZING, Verified 02/02/23 13:05
eyes
watering
house dust Allergy SNEEZING, Verified 02/02/23 13:05
eyes
watering
ragweed pollen Allergy SNEEZING, Verified 02/02/23 13:05
eyes
watering
HORSE LICE Allergy Unknown Uncoded 02/02/23 13:05
�Medication �Instructions �Recorded
atorvastatin 40 mg tablet 40 mg PO QPM High cholesterol 11/02/19
aspirin 81 mg tablet,delayed 81 mg PO DAILY 07/23/20
release
acetaminophen 500 mg tablet 1,000 mg PO TID 12/22/22
(Tylenol Extra Strength)
albuterol sulfate 90 mcg/actuation 2 puff inhalation R Q4HPRN PRN sob 12/22/22
aerosol inhaler
calcium carbonate (Calcium 600) 1,200 mg PO BID PRN GERD 12/22/22
levothyroxine 137 mcg tablet 137 mcg PO DAILY 12/22/22
losartan 100 mg tablet 100 mg PO DAILY 12/22/22
therapeutic multivitamin 1 tab PO DAILY 12/22/22
carvedilol 3.125 mg tablet 3.125 mg PO BID #60 tabs 12/26/22
furosemide 40 mg tablet 40 mg PO DAILY #30 tabs 12/26/22
fluticasone propionate 50 1 spray intranasal Q12H PRN nasal 02/02/23
mcg/actuation nasal congestion
spray,suspension
ondansetron 4 mg disintegrating 4 mg PO Q6H PRN nausea 02/02/23
tablet
tramadol 50 mg tablet 50 mg PO Q6H PRN pain rt low back 02/02/23
nitroglycerin 0.4 mg sublingual 0.4 mg sublingual [id number] PRN 02/03/23
tablet chest pain #25 tabs
amlodipine 10 mg tablet 10 mg PO DAILY 10/27/23
cholecalciferol (vitamin D3) 50 50 mcg PO DAILY 10/27/23
mcg (2,000 unit) tablet (Vitamin
D3)
hydralazine 25 mg tablet 25 mg PO TID 10/27/23
Review of Systems
-
History Source: Patient
Constitutional: Reports Fatigue
EENT: Reports No Symptoms
Respiratory: Reports No Symptoms
Cardiac: Reports No Symptoms
Abdomen/GI: Reports Abdominal Pain, Nausea and Vomiting (coffee ground emesis )
: Reports No Symptoms
Musculoskeletal: Reports Edema (oozing LE)
Neurological: Reports Weakness
Endocrine: Reports No Symptoms
Hematologic/Lymphatic: Reports Bleeding (coffee ground emesis )
Vital Signs
Temp Pulse Resp BP Pulse Ox
97.6 F 80 21 114/53 98
10/27/23 06:14 10/27/23 06:17 10/27/23 06:17 10/27/23 06:17 10/27/23 06:17
Physical Exam
Exam
General: Other (elderly male no acute distress awake and alert )
HEENT: Normocephalic and Anicteric
Respiratory: Clear
Cardiac: Regular Rhythm
GI: Soft, Non Distended and Tender (mid lower abdomen right sided )
Musculoskeletal: No Clubbing and No Cyanosis
Skin: Warm and Dry
Neuro: Awake, Alert and AO x 3
Psych: Calm
Results
WBC 15.0 10^3/uL (4.8-10.8) H 10/27/23 05:48
Hgb 6.2 g/dL (13.0-18.0) L* 10/27/23 05:48
Hct 18.6 % (39.0-52.0) L* 10/27/23 05:48
MCV 87.3 fL (80.0-94.0) 10/27/23 05:48
Plt Count 355 10^3/uL (130-400) D 10/27/23 05:48
Sodium 138 mmol/L (135-145) 10/27/23 05:48
Potassium 4.1 mmol/L (3.5-5.1) 10/27/23 05:48
Chloride 107 mmol/L (98-107) 10/27/23 05:48
Carbon Dioxide 22 mmol/L (22-30) 10/27/23 05:48
BUN 46 mg/dl (9-20) H 10/27/23 05:48
Creatinine 1.0 mg/dL (0.7-1.3) 10/27/23 05:48
Calcium 8.5 mg/dl (8.4-10.2) 10/27/23 05:48
Total Bilirubin 0.3 mg/dl (0.2-1.3) 10/27/23 00:27
AST 21 U/L (17-59) 10/27/23 00:27
ALT < 10 U/L (0-50) 10/27/23 00:27
Alkaline Phosphatase 114 U/L (38-126) 10/27/23 00:27
Lipase 173 U/L (23-300) 10/27/23 00:27
Diagnostic Image Results:
CT pending
preliminary ? duodenitis vs pancreatitis
- known duodenum diverticulum
- no obstructive uropathy
- no hepatic or pancreatic mass
- no abdominal aneurysm
- bibasilar atx
Prior GI Procedures:
EGD: none
Colonoscopy: none
Assessment / Plan
-
Pt is a 88yo with multiple med problems-metastatic prostate CA, CAD stents on ASA, CVA, NIDDM, asthma with onset of abdominal with nausea and vomiting coffee ground emesis after admission with heme neg brown stool on rectal in ER. Pt repots
abdominal pain is lower abdomen constant about 6/10 for last few days. CT preliminary report with noted duodenitis vs pancreatitis and know duodenal diverticulum. He is also noted with hbg 5.6 on admission with drop from 8.6 on 10/13 with BUN up
to 46. He admits to taking Motrin several tablets daily for back pain. Pt denies hx EGD or colonoscopy in past.
-symptomatic anemia with 3 gram drop since 10/13
-coffee ground emesis
-CT with duodenitis/pancreatitis
-daily NSAID use for back pain
-acute on chronic CHF with LE swelling
other med problems:
-metastatic prostate CA with current rx with Dr. Solis
-CAD with stents on ADA
-hx CVA
-asthma
-NIDDM
-hypothyroidism
-HTN
-hypercholesterolemia
-TURP
PLAN:
etiology of anemia with CGE related to duodenitis- ? duodenal ulcer with NSAID use vs other
2nd unit transfusion running now - repeat hbg after completed
possible EGD later today pending repeat hbg and cards eval with CHF
await final reading of CT
PPI gtt
NSAID avoidance
NPO
reviewed with Dr. Nuno /cards with acute on chronic CHF on admission
will follow
-
-
Thank you for consultation and allowing me to participate in the patient's care. Please call the inside sales professional GI physician during the after hours with any questions or concerns.
[2023-10-27] MEDS: COZAAR 100 MG PO (08:44)
[2023-10-27] MEDS: COREG 3.125 MG PO ×2 (08:45→22:17)
--- NOTE | 2023-10-27 09:00 | PTCARENOTE ---
Patient received from shift superintendent. Patient resting comfortably in bed. AAO, VSS. No events noted overnight. No complaints of pain at this time aside from tenderness at site of skin tear on right lundberg. Currently receiving second unit of PRBC,
tolerating well. Possible EGD if repeat Hgb improved. Call white in reach.
--- NOTE | 2023-10-27 09:18 | CON.CAR ---
Addendum entered and electronically signed by Roly Ojeda MD 10/27/23 12:33:
88 yo male with CAD s/p LAD and OM1 stents 01/2023, ICM EF 40-45%, chronic systolic HF admitted with suspected upper GI bleed, coffee ground emesis, Hgb 5.6. No chest pain. Exam with RRR, no murmurs, no edema. Tele: SR 80s, PAC's, PVC's. Hgb
5.6-->8.2.
Plan for endoscopy today. He is stable from cardiac perspective. No evidence of acute HF, and did receive IV lasix with pRBC transfusion.
ASA and Plavix on hold with significant GI bleed. Will resume ASA 81mg when safe post endoscopy, given coronary stents. Will not resume Plavix given age, GI bleed.
Original Note:
Consultation
Consultation Request
Date/Time Consultation Requested: 10/27/23 0303
Date/Time Consultation Performed: 10/27/23 0900
Requesting Provider: Dr. Harrington
Performing Provider: Karishma BAI for Dr. Ojeda
Reason for Consultation: CHF
Medical History
-
Chief Complaint: abdominal pain, vomiting
History of Present Illness:
88 y/o male with CAD with multiple stents (most recent 02/02/23: distal LAD and OM1), carotid artery disease, hypertension, metastatic prostate cancer, HFmEF, severe pulmonary hypertension, and dyslipidemia who is here for evaluation of 5 days of
abdominal pain and then vomiting (which he described as 'dark'). Hgb on arrival was 5.6. He denies any CP or SOB. We are consulted due to CHF. He denies any SOB, lungs sound clear to assessment. He has LE edema, which is mild and chronic, and
unchanged per patient. He denies any orthopnea or PND. He is on 2L O2 by [place], and is satting in high 90's. He is in no distress at the time of my assessment and is getting his 2nd unit of blood. He received 1 dose of IV lasix after the first unit of
blood. He also received 500 ml saline in ER. Per update note, he vomited 900 ml coffee ground emesis overnight. He is on a PPI drip. GI is evaluating and planning for EGD today.
Past Medical History
Past Medical History: CAD, CHF, CVA, HTN, Hypercholesterolemia and NIDDM
Social History
Tobacco: Former Smoker
Family History
Family History: Reviewed & Not Pertinent
Allergies / Home Medications
Allergy/AdvReac Type Severity Reaction Status Date / Time
grass pollen Allergy SNEEZING, Verified 02/02/23 13:05
eyes
watering
house dust Allergy SNEEZING, Verified 02/02/23 13:05
eyes
watering
ragweed pollen Allergy SNEEZING, Verified 02/02/23 13:05
eyes
watering
HORSE LICE Allergy Unknown Uncoded 02/02/23 13:05
�Medication �Instructions �Recorded �Confirmed �Type
atorvastatin 40 mg tablet 40 mg PO QPM High cholesterol 11/02/19 10/27/23 History
aspirin 81 mg tablet,delayed 81 mg PO DAILY 07/23/20 10/27/23 History
release
acetaminophen 500 mg tablet 1,000 mg PO TID 12/22/22 10/27/23 History
(Tylenol Extra Strength)
albuterol sulfate 90 mcg/actuation 2 puff inhalation R Q4HPRN PRN sob 12/22/22 10/27/23 History
aerosol inhaler
calcium carbonate (Calcium 600) 1,200 mg PO BID PRN GERD 12/22/22 10/27/23 History
levothyroxine 137 mcg tablet 137 mcg PO DAILY 12/22/22 10/27/23 History
losartan 100 mg tablet 100 mg PO DAILY 12/22/22 10/27/23 History
therapeutic multivitamin 1 tab PO DAILY 12/22/22 10/27/23 History
carvedilol 3.125 mg tablet 3.125 mg PO BID #60 tabs 12/26/22 10/27/23 Rx
furosemide 40 mg tablet 40 mg PO DAILY #30 tabs 12/26/22 10/27/23 Rx
fluticasone propionate 50 1 spray intranasal Q12H PRN nasal 02/02/23 10/27/23 History
mcg/actuation nasal congestion
spray,suspension
ondansetron 4 mg disintegrating 4 mg PO Q6H PRN nausea 02/02/23 10/27/23 History
tablet
tramadol 50 mg tablet 50 mg PO Q6H PRN pain rt low back 02/02/23 10/27/23 History
nitroglycerin 0.4 mg sublingual 0.4 mg sublingual [id number] PRN 02/03/23 10/27/23 Rx
tablet chest pain #25 tabs
amlodipine 10 mg tablet 10 mg PO DAILY 10/27/23 10/27/23 History
cholecalciferol (vitamin D3) 50 50 mcg PO DAILY 10/27/23 10/27/23 History
mcg (2,000 unit) tablet (Vitamin
D3)
hydralazine 25 mg tablet 25 mg PO TID 10/27/23 10/27/23 History
Review of Systems
-
History Source: Patient
All other systems: Negative unless noted
Abdomen/GI: Abdominal Pain and Vomiting
Physical Exam
Vital Signs
Temp Pulse Resp BP Pulse Ox
97.6 F 82 21 147/73 98
10/27/23 06:14 10/27/23 08:44 10/27/23 06:17 10/27/23 08:44 10/27/23 06:17
Lab Results
10/27/23 05:48
Troponin I 0.032 ng/ml 10/27/23 00:35
Ocn-J-Ctcnoiebxtc Pept 4480 pg/ml 10/27/23 00:35
Physical Exam
General: Well Developed, Well Nourished and No Apparent Distress
HEENT: Normocephalic and Anicteric
Respiratory: Clear and Other (On O2 by [place])
Cardiac: Regular Rhythm
Musculoskeletal: Edema (mild BLE edema, chronic)
Neuro: AO x 3
Psych: Calm
Impression / Plan
-
Anemia, [id number], severe:
-vomiting up coffee ground emesis per notes
-now s/p 2 units PRBC's. Continue to transfuse as appropriate. Will give another dose IV lasix s/p transfusion.
-EGD today
-ASA/plavix held in setting of severe anemia with active bleeding- resume ASA when safe
CAD with hx multiple stents:
-most recent 02/02/23
-ASA/plavix held with severe anemia and acute bleed- resume ASA when safe
-denies any CP
-EKG with t wave changes in setting of hgb 5.6
HFmEF: chronic
-does not appear obviously volume overloaded to my assessment- denies orthopnea, PND. Lungs clear, chronic BLE edema stable.
-would give IV lasix after PRBC administrations, and follow volume. On Lasix 40 mg PO daily as OP.
-recent echo as below
ICM:
-EF 40-45%
-on ARB, BB, imdur, hydralazine as OP. Entresto and SGLT2 not affordable for patient per OP chart.
Data Reviewed
-
EKG: Tracing Personally Visualized and interpreted (SR with NS T abnormality 83 BPM)
Medical Tests (Nuc Med, Echo etc): Report Reviewed by me (Echo 10/15/23: LVEF is 40 to 45%. Global diffuse hypokinesis. Stage II diastolic dysfunction. Moderate tricuspid regurgitation. Estimated pulmonary artery pressure of 73 mmHg.)
Labs: Labs Reviewed by me
[2023-10-27 11:38] LABS: Glucose - Point of Care 148 mg/dl (70-99)
[2023-10-27 12:16] LABS: Hematocrit 23.9 % (39.0-52.0); Hemoglobin 8.2 g/dL (13.0-18.0)
[2023-10-27] MEDS: ULTRAM 50 MG PO ×2 (12:32→22:19)
--- NOTE | 2023-10-27 13:33 | W.PN.UPDATE ---
Update Note
Progress Note Update
EGD done
Multiple superficial Lamine in antrum
Few DUs, largest in 2nd portion duodenum 15mm with adherent clot, injected with 6cc dilute epinephrine.
I decided not to remove clot since he took plavix 1-2 days ago
REC:
NPO
Protonix gtt
Trend Hgb
If ongoing bleeding, repeat EGD
Avoid NSAIDs
[2023-10-27 13:51] LABS: Glucose - Point of Care 161 mg/dl (70-99)
[2023-10-27] MEDS: DILAUDID 0.25 MG IV (14:05)
[2023-10-27] MEDS: ANCEF 5 IV ×2 (14:53→22:20)
[2023-10-27] MEDS: NSS 1000 IV (14:54)
--- NOTE | 2023-10-27 14:57 | CM ---
Patient with Dx Acute abdominal pain, anemia, suspect HF. O2 2L. Receiving IV cefazolin. EGD today.
Spoke with patient who resides alone in a 1 story house with 3 GLENYS.
The patient has been independent in ADLs and ambulation using his SPC.
He still goes out to visit his in the intermediate and shops.
He also has food delivery from [employer].
No housing/food/utility/transport insecurity.
DME - [facility]
Prior [facility]
Prior [facility].
PCP - Michel Parish
Pharmacy - [facility]
The patient's resides at [facility] in [facility].
Patient states he is planning on moving in with his daughter Shruthi in [facility] [place], once they can get his transferred to a SNF near there.
He has no other local family here.
The patient feels that he doesn't need a caregiver to help him in the interim.
He expressed that he would like VN at d/c and agrees to a referral to VN.
Message to [facility] Liaison.
Plan speak to patient about transport to home, when closer to d/c.
Plan home with [facility].
--- NOTE | 2023-10-27 15:38 | WOUNDNOTE ---
R LEG ANTERIOR VIEW
--- NOTE | 2023-10-27 15:39 | WOUNDNOTE ---
ANIRUDH RN note: Patient admitted with anemia, abdominal pain.
See H&P for complete history.
PMH:NIDDM,CHF,CVA, back pain and Prostate cancer.
Wound Location and type/assessment: Patient admitted with: R lower leg cluster of shallow open blisters. Upon cleaning residual blister skin sloughed off, revealing pink base. + Pedal pulses audible with Doppler, skin very dry. Patient states he
has worn compression in past. L heel and Sacrum stage 1 non blanchable pink. R heel intact.
Appetite: NPO for testing.
Pressure redistribution devices in place: air mattress. Pillow placed under calves, air cushion when sitting.
Plan:Foams applied to sacrum and heels. Will order mineral oil for dry skin on both legs daily. R leg applied Xeroform, abd pad and pat. Alfie wrap knee high, leg elevation when in recliner chair.
Will confirm orders with hospitalist and updated nurse Rivera. Updated care plan and will follow as needed.
Note to case management of equipment requested for discharge: [facility]N
Recommend follow up at wound care center upon discharge.
--- NOTE | 2023-10-27 16:21 | W.PN.HOSP.TC ---
Today's Communication/Plan
-
All discussed with the patient in detail expressed understanding
Discussed with cardiology
Discussed with GI
Discussed with the nurse
CODE STATUS full code
DVT prophylaxis: Will do foot pump, not a candidate for pharmacologic because of GI bleed and an SCD because of cellulitis of the right leg.
Assessment / Plan
Assessment / Plan
Physical exam:
General: Awake, alert and oriented x3, not in distress and holds appropriate conversation.
HEENT: No active discharge, ecchymosis or bruising, moist lips, tongue and mucous membrane.
Eyes: No discharge or red conjunctiva, no nystagmus, pupils are reactive and equal
Neck:Supple, no JVD no bruit no goiter.
Respiratory: Normal AP contour and diameter, normal chest wall movement, normal respiratory effort, no respiratory distress,
Lungs: Good air entry bilaterally, no wheezing or rhonchi, no rales or crackles
Heart: S1, S2 regular, normal rate, no added sound.
Gastrointestinal: Positive bowel sounds, soft, mild epigastric tenderness, no guarding or rigidity or organomegaly
Musculoskeletal: , no chest wall abnormality or tenderness. All joints and extremities have good range of motion, no muscle tenderness or any joint swelling or tenderness.
Extremities: Bilateral lower extremity pitting edema, open wound on right leg with evidence of cellulitis, mostly in the right lundberg and medial aspect, good peripheral pulses, good range of motion
Skin: Warm and dry, , normal color.
Neurological: Awake, alert and oriented x3, no facial speech clear and comprehensive, good muscle tone,
Psychiatric: Normal mood, normal thought and judgment, normal affect,
88-year-old male presented with hematemesis, melena and abdominal pain been taking NSAID concern for peptic ulcer disease.
-Acute blood loss anemia: Likely upper GI specially been taking NSAIDs concerning for peptic ulcer disease or duodenitis well other causes need to be considered.
Keep n.p.o. plan for EGD
Repeat hemoglobin is 8.2 initially was 5.1 status post 2 unit of
Monitor hemoglobin regularly
PPI
Hold aspirin and Plavix, sinus stent 9 months ago discussed with cardiology looks like elevated restarted back on aspirin alone
For further workup to GI.
Avoid NSAID and advised about not taking NSAIDs anymore.
Discussed with GI and cardiology, cleared by cardiology for EGD.
-Upper GI bleed: Likely ulcer versus duodenitis or gastritis as above
Management as above status post 2 unit of blood
Leukocytosis: Likely reactive
Recheck
Mild to moderate protein caloric malnutrition, total protein 4.9 albumin 2.7
Once able to be encouraged hydration intake.
Right leg cellulitis:
Patient that this is happening because of the [place] stocking,
Start IV cefazolin
Blood and wound tissue culture
Wound care consult
May consider ID consult if not improving will change antibiotic
Chronic systolic congestive heart failure EF around 40 to 45%: Received dose of the IV Lasix after units of blood
Looks euvolemic now
Carvedilol
Cardiology consult.
Losartan
Hypothyroidism: Continue levothyroxine
Anticipated Discharge: > 48 hours
Subjective/Interval History
-
Date of Service: October 27, 2023
Seen and examined earlier, awake and alert, n.p.o., denies any more vomiting or hematemesis, no fresh rectal bleed, last time with his bowel yesterday morning was dark brown. Abdominal pain is improving.
Plan for EGD once hemoglobin is improved at received 2 units of blood.
On Protonix drip
Cardiology at the bedside.
Objective Data
-
Labs:
Laboratory Results
10/27/23 10/27/23 10/27/23
05:48 11:40 20:00
WBC 15.0 H
Hgb 6.2 L* 8.2 L D Pending
Hct 18.6 L* 23.9 L Pending
Plt Count 355 D
Sodium 138
Potassium 4.1
Chloride 107
Carbon Dioxide 22
BUN 46 H
Creatinine 1.0
Glucose 128 H
Calcium 8.5
Vital Signs:
Vital Signs
Temp Pulse Resp BP Pulse Ox
97.0 F 71 20 134/71 100
10/27/23 13:41 10/27/23 14:15 10/27/23 14:15 10/27/23 14:15 10/27/23 14:25
I&O
10/26/23 10/27/23 10/28/23
07:59 07:59 07:59
Intake Total 250 / 250 490 / 490
Output Total 1300 / 1300
Balance -1050 / -1050 490 / 490
Review of Systems
-
All other systems: Reviewed and negative
[2023-10-27 18:46] LABS: Glucose - Point of Care 159 mg/dl (70-99)
[2023-10-27 20:50] LABS: Hematocrit 22.3 % (39.0-52.0); Hemoglobin 7.8 g/dL (13.0-18.0)
--- NOTE | 2023-10-27 22:49 | PTCARENOTE ---
Pt received from previous RN. Pt AAO. Making needs known. Pt NSR on monitor. Getting IVF n/s @ 40ml/hr via right wrist IV. Pt c/o 11/15 back pain, pt given ordered tramadol. Call light in reach.
[2023-10-27 23:49] LABS: Glucose - Point of Care 125 mg/dl (70-99)
[2023-10-28] VITALS (10 sets, daily range): BP systolic 105–156; BP diastolic 42–122; BMI 26.5
[2023-10-28] MEDS: ULTRAM 50 MG PO ×2 (04:00→18:23)
[2023-10-28] MEDS: PROTONIX 100 IV ×2 (04:00→14:35)
[2023-10-28] MEDS: ANCEF 5 IV ×3 (04:01→20:32)
[2023-10-28 04:58] LABS: Hematocrit 21.9 % (39.0-52.0); Hemoglobin 7.5 g/dL (13.0-18.0); Mean Corp Hgb Conc. 34.2 g/dL (33.0-37.0); Mean Corpuscular Hgb 30.4 pg (27.0-31.0); Mean Corpuscular Volume 88.7 fL (80.0-94.0); Mean Platelet Volume 10.2 fL (7.4-10.4); Platelet Count 302 10^3/uL (130-400); Red Blood Cell Count 2.47 10^6/uL (4.70-6.10); Red Cell Dist. Width 16.4 % (11.5-14.5); White Blood Cell Count 12.4 10^3/uL (4.8-10.8)
[2023-10-28 05:14] LABS: Blood Urea Nitrogen 35 mg/dl (9-20); Carbon Dioxide 26 mmol/L (22-30); Chloride 108 mmol/L (98-107); Estimated Creatinine Clearance 53 ml/min; Glucose 102 mg/dl (70-99); Magnesium 2.1 mg/dl (1.6-2.3); Potassium 3.6 mmol/L (3.5-5.1); Sodium 139 mmol/L (135-145); eGFR > 60.00
[2023-10-28] MEDS: SYNTHROID 137 MCG PO (05:40)
--- NOTE | 2023-10-28 07:20 | W.PN.GI.CBS2 ---
Today's Communication / Plan
-
Keep NPO
Hgb down a little since PRBC, continue to trend
Cont protonix gtt
If signs of rebleeding, repeat EGD to treat DU. 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
Hold plavix
Avoid NSAIDs
Assessment / Plan
-
Summary: 88yo with multiple med problems-metastatic prostate CA, CAD stents on ASA, CVA, NIDDM, asthma presents with abdominal and coffee ground emesis. Heme neg brown stool on rectal in ER. Pt repots abdominal pain is lower abdomen constant
about 6/10 for last few days. CT- duodenitis at second portion, duodenal diverticulum. Hgb 5.6 on admission down from 8.6 on 10/13. BUN up to 46. He admits to taking Motrin several tablets daily for back pain. Pt denies hx EGD or colonoscopy in
past.
10/26- 2 units PRBCs
10/26 EGD-
Multiple superficial Lamine in antrum
Few DUs, largest in 2nd portion duodenum 15mm with adherent clot, injected with 6cc dilute epinephrine.
I decided not to remove clot since he took plavix 1-2 days ago
Impression:
-UGIB due to DU in second portion with overlying clot, injected 6cc epi. 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
-Acute blood loss anemia with 3 gram drop since 10/13
-coffee ground emesis
-CT with duodenitis/pancreatitis
-daily NSAID use for back pain
-acute on chronic CHF with LE swelling
other med problems:
-metastatic prostate CA with current rx with Dr. Solis
-CAD with stents on ADA
-hx CVA
-asthma
-NIDDM
-hypothyroidism
-HTN
-hypercholesterolemia
-TURP
Subjective
Subjective
Date of Service: October 28, 2023
No complaints, sitting in chair. Denies abd pain. No significant BMs reported
Objective
Data Reviewed
Laboratory Data:
Laboratory Results
10/28/23 04:14
10/28/23 04:14
Laboratory Results
Magnesium 2.1 mg/dl (1.6-2.3) 10/28/23 04:14
Total Bilirubin 0.3 mg/dl (0.2-1.3) 10/27/23 00:27
AST 21 U/L (17-59) 10/27/23 00:27
ALT < 10 U/L (0-50) 10/27/23 00:27
Alkaline Phosphatase 114 U/L (38-126) 10/27/23 00:27
Lipase 173 U/L (23-300) 10/27/23 00:27
Vital Signs and I&O:
Vital Signs
Temp Pulse Resp BP Pulse Ox
97.5 F 69 17 143/42 97
10/28/23 04:25 10/28/23 02:00 10/28/23 02:00 10/28/23 02:00 10/28/23 03:26
I&O
10/27/23 10/28/23 10/29/23
06:59 06:59 06:59
Intake Total 250 / 250 490 / 490
Output Total 1200 / 1200 680 / 680
Balance -950 / -950 -190 / -190
Physical Exam
Physical Exam
GI: Soft and Non Tender
[2023-10-28] MEDS: COZAAR 100 MG PO (07:37)
[2023-10-28] MEDS: COREG 3.125 MG PO ×2 (07:37→20:33)
[2023-10-28] MEDS: HYDROPHOR 1 APPLIC TOPICAL (07:38)
[2023-10-28 08:20] LABS: Glucose - Point of Care 142 mg/dl (70-99)
[2023-10-28 08:38] LABS: Hematocrit 23.5 % (39.0-52.0); Hemoglobin 7.9 g/dL (13.0-18.0)
--- NOTE | 2023-10-28 08:39 | W.PN.CD ---
Today's Communication / Plan
-
appears euvolemic, if acceptable from GI standpoint, restart ASA
Impression / Plan
-
Anemia, [id number], severe:
-required transfusino
-now status post EGD with injection of epi into duodenal ulcer
-ASA/plavix held in setting of severe anemia with active bleeding
-resume ASA as soon as safe
CAD with hx multiple stents:
-most recent 02/02/23
-ASA/plavix held with severe anemia and acute bleed - resume ASA when safe; ok to stop plavix at this point given severe bleeding and 8 months therapy
-denies any CP
-EKG with t wave changes in setting of hgb 5.6
HFmEF: chronic
-does not appear obviously volume overloaded to my assessment- denies orthopnea, PND. Lungs clear, chronic BLE edema stable.
-would give IV lasix after PRBC administrations, and follow volume. On Lasix 40 mg PO daily as OP.
-recent echo as below
ICM:
-EF 40-45%
-on ARB, BB, imdur, hydralazine as OP. Entresto and SGLT2 not affordable for patient per OP chart.
Physical Exam
Vital Signs/Labs
Vital Signs
Temp Pulse Resp BP Pulse Ox
36.4 C 95 31 136/49 100
10/28/23 04:25 10/28/23 07:37 10/28/23 07:00 10/28/23 07:37 10/28/23 06:00
10/27/23 10/28/23 10/29/23
06:59 06:59 06:59
Actual Weight 78.5 kg 76.7 kg
10/28/23 04:14
Magnesium 2.1 mg/dl (1.6-2.3) 10/28/23 04:14
10/27/23
00:35
Pae-D-Leelzhdlive Pept 4480
LAB Results
10/27/23
00:35
Troponin I 0.032
Physical Exam
Constitutional: No acute distress, Comfortable and Confusion
Cardiovascular: Rhythm & rate is regular, Pedal edema is absent, JVD pressure is normal and Systolic murmur absent
Respiratory: Respiratory effort normal, Lungs clear to auscul., Wheeze Absent, Crackles Absent and Rhonchi Absent
GI: Soft and Distention absent
Neuro/Psych: Alert, Oriented and AO x 3
Data Reviewed
-
Date of Service: October 28, 2023
Medical Decision Making: Reviewed Test Results
EKG: Tracing Personally Visualized and interpreted
Medical Tests (PFT, Pathology etc): Report Reviewed by me
Labs: Labs Reviewed by me
--- NOTE | 2023-10-28 09:00 | PTCARENOTE ---
Patient received from lawyers. Patient resting comfortably in the chair. AAO, VSS. No events noted overnight. No complaints of pain at this time aside from continued tenderness at site of skin tear on right lundberg and lower back. Continuing
to monitor Hgb, was 7.5 this AM. IVF through IV and Protonix gtt continued. Call white in reach.
--- NOTE | 2023-10-28 10:24 | VNURNOTE ---
Home Health Liaison met with patient at bedside to discuss [facility] nurse/therapy, visits, schedule and homebound status. Patient is agreeable and understands that visits at home will be 2-3 x per week to assess and teach medical management, wound care.
Discussed wound care with patient. Explained nursing cannot see him every day. He stated he can perform days nursing does not come out. This author questions his ability to reach and see to perform WC. This author reached out to his daughter
Shruthi. Explained the concerns w/wound care. She will talk to her Dad about a friend who could learn. She also requested a list of private CGs. List emailed to her at [email or web address]. [facility] brochure provided with contact information to
patient. [facility] liaison contact info provided to daughter as well. Patient is aware that [facility] will contact them for start of care in 1-2 days after discharge from . [facility] referral completed in [facility].
[2023-10-28] MEDS: MIRALAX 17 GRAMS PO (11:39)
[2023-10-28] MEDS: SENOKOT-S 1 TABLET PO (11:39)
[2023-10-28 13:05] LABS: Glucose - Point of Care 98 mg/dl (70-99)
--- NOTE | 2023-10-28 13:06 | W.PN.HOSP.TC ---
Today's Communication/Plan
-
Called his daughter Shruthi and updated her over the phone
All discussed with the patient
Discussed with the nurse
Assessment / Plan
Assessment / Plan
Physical exam:
General: Awake, alert and oriented x3, not in distress and holds appropriate conversation.
HEENT: No active discharge, ecchymosis or bruising, moist lips, tongue and mucous membrane.
Eyes: No discharge or red conjunctiva, no nystagmus, pupils are reactive and equal
Neck:Supple, no JVD no bruit no goiter.
Respiratory: Normal AP contour and diameter, normal chest wall movement, normal respiratory effort, no respiratory distress,
Lungs: Good air entry bilaterally, no wheezing or rhonchi, no rales or crackles
Heart: S1, S2 regular, normal rate, no added sound.
Gastrointestinal: Positive bowel sounds, soft, mild epigastric tenderness, no guarding or rigidity or organomegaly
Extremities: Bilateral lower extremity pitting edema, open wound on right leg with evidence of cellulitis which looks little better, mostly in the right lundberg and medial aspect, good peripheral pulses, good range of motion
Skin: Warm and dry, , normal color.
Neurological: Awake, alert and oriented x3, no facial speech clear and comprehensive, good muscle tone,
88-year-old male presented with hematemesis, melena and abdominal pain been taking NSAID concern for peptic ulcer disease.
-Acute blood loss anemia: EGD showed multiple ulcers in stomach and duodenum, likely secondary to taking NSAIDs
Keep n.p.o. for now upper GI
initially was 5.1 status post 2 unit of blood, last hemoglobin was 7.9
Monitor hemoglobin regularly
PPI drip
Hold aspirin and Plavix, had cardiac stent 9 months ago discussed with cardiology looks like elevated restarted back on aspirin alone, once cleared by GI, restarted back on aspirin
For further workup to GI.
Avoid NSAID and advised about not taking NSAIDs anymore.
Recheck
Discussed with GI and cardiology, cleared by cardiology for EGD.
IV fluid and decreased to 80 cc was close monitoring of fluid status.
-Upper GI bleed: Secondary to multiple ulcers
Management as above status post 2 unit of blood
Leukocytosis: Likely reactive, improved
Recheck
Mild to moderate protein caloric malnutrition, total protein 4.9 albumin 2.7
Once able to be encouraged hydration intake.
Right leg cellulitis:
Patient that this is happening because of the Keaton stocking,
Current IV cefazolin
Blood and wound tissue culture
Wound care consult
May consider ID consult if not improving will change antibiotic
Chronic systolic congestive heart failure EF around 40 to 45%: Received dose of the IV Lasix after units of blood
Looks euvolemic now
Carvedilol
Cardiology consult.
Losartan
Hypothyroidism: Continue levothyroxine
Anticipated Discharge: > 48 hours
Subjective/Interval History
-
Date of Service: October 28, 2023
Seen and examined, awake and alert, sitting on the chair, admit did not sleep well last night feels tired denies any more nausea vomiting or any hematemesis or changes stool or urine color, no fever or chill or chest pain or shortness of breath.
Still n.p.o. GI want him to be n.p.o.
Objective Data
-
Labs:
Laboratory Results
10/28/23 10/28/23 10/28/23
04:14 08:25 15:30
WBC 12.4 H
Hgb 7.5 L 7.9 L Pending
Hct 21.9 L 23.5 L Pending
Plt Count 302
Sodium 139
Potassium 3.6
Chloride 108 H
Carbon Dioxide 26
BUN 35 H
Creatinine 0.9
Glucose 102 H
Calcium 8.0 L
10/28/23
23:30
WBC
Hgb Pending
Hct Pending
Plt Count
Sodium
Potassium
Chloride
Carbon Dioxide
BUN
Creatinine
Glucose
Calcium
Vital Signs:
Vital Signs
Temp Pulse Resp BP Pulse Ox
97.5 F 80 26 119/76 98
10/28/23 11:35 10/28/23 12:00 10/28/23 12:00 10/28/23 08:01 10/28/23 09:23
I&O
10/27/23 10/28/23 10/29/23
07:59 07:59 07:59
Intake Total 250 / 250 490 / 490
Output Total 1300 / 1300 580 / 580
Balance -1050 / -1050 -90 / -90
Review of Systems
-
All other systems: Reviewed and negative
[2023-10-28] MEDS: NSS IV (14:22)
[2023-10-28] MEDS: NSS 1000 IV (14:35)
[2023-10-28 16:56] LABS: Hemoglobin 8.3 g/dL (13.0-18.0)
[2023-10-28] MEDS: NOVOLOG FLEXPEN-LOW RESISTANCE SC (17:32)
--- NOTE | 2023-10-28 17:33 | CM ---
Patient with Dx upper GI bleed anemia, Right leg cellulitis. O2 4L. NPO. Receiving IV Abx, IVF. Seen by wound care nurse.
CM continuing to follow for d/c needs.
Plan home with [facility].
[2023-10-28 17:36] LABS: Glucose - Point of Care 94 mg/dl (70-99)
--- NOTE | 2023-10-28 20:58 | PTCARENOTE ---
Pt received from previous RN. Pt AAO, making needs known. Pt seems to be a little anxious this evening. Pt spoken to in reassuring tone and all care interventions explained. Pt assisted from chair to bed with this assistance of this RN and one PCT.
Pt had slow but steady gait. Pt used cane. Pt NSR on monitor. Pt on 4L 02, sat 100 dyspneic on exertion. Pt remains NPO with sips of clears and oral meds. Pt placed on foot pumps. expressed no furthur needs at this time. Call light in reach.
[2023-10-29] VITALS (16 sets, daily range): BP systolic 108–146; BP diastolic 40–118
[2023-10-29 00:02] LABS: Hematocrit 20.3 % (39.0-52.0); Hemoglobin 6.9 g/dL (13.0-18.0)
[2023-10-29 00:08] LABS: Glucose - Point of Care 105 mg/dl (70-99)
--- NOTE | 2023-10-29 00:16 | W.PN.UPDATE ---
Update Note
Progress Note Update
Hgb level dropped down from 8.3 to 6.9, no signs of active bleeding and vital sign within normal level. One unit of blood ordered and will continue trending h&h.
--- NOTE | 2023-10-29 00:33 | PTCARENOTE ---
Hgb 6.9. BOW MAKER MACHINE TENDER notified. Order recived for I unit PRBC. Awaiting blood to be ready. Consent in chart, type and screen on file. Pt with no bloody stools or emesis. V/S stable.
[2023-10-29] MEDS: ULTRAM 50 MG PO ×3 (00:40→18:48)
[2023-10-29] MEDS: PROTONIX 100 IV ×3 (00:55→20:26)
[2023-10-29] MEDS: ANCEF 5 IV (06:02)
[2023-10-29] MEDS: SYNTHROID 137 MCG PO (06:02)
[2023-10-29 06:06] LABS: Glucose - Point of Care 137 mg/dl (70-99)
[2023-10-29 06:42] LABS: Hematocrit 23.3 % (39.0-52.0); Hemoglobin 7.8 g/dL (13.0-18.0)
[2023-10-29 07:03] LABS: Hematocrit 24.1 % (39.0-52.0); Mean Corp Hgb Conc. 33.2 g/dL (33.0-37.0); Mean Corpuscular Volume 90.3 fL (80.0-94.0); Mean Platelet Volume 10.1 fL (7.4-10.4); Platelet Count 270 10^3/uL (130-400); Red Blood Cell Count 2.67 10^6/uL (4.70-6.10); Red Cell Dist. Width 16.3 % (11.5-14.5); White Blood Cell Count 14.2 10^3/uL (4.8-10.8)
[2023-10-29] MEDS: NOVOLOG FLEXPEN-LOW RESISTANCE SC ×2 (07:34→17:17)
--- NOTE | 2023-10-29 08:15 | W.PN.CD ---
Today's Communication / Plan
-
continue to evaluate for safety to restart asa, diuresis PRN if needed after pRBC administration though appears euvolemic this morning
Impression / Plan
-
Anemia, [id number], severe:
-now status post EGD with injection of epi into duodenal ulcer
-required transfusion again overnight without active signs of bleeding
-ASA/plavix held in setting of severe anemia with active bleeding
-resume ASA as soon as deemed safe
CAD with hx multiple stents:
-most recent 02/02/23
-ASA/plavix held with severe anemia and acute bleed - resume ASA when safe; ok to stop plavix at this point given severe bleeding and 8 months therapy
-denies any CP
-EKG with t wave changes in setting of intitial severe anemia
HFmEF: chronic
-does not appear obviously volume overloaded to my assessment- denies orthopnea, PND. Lungs clear, chronic BLE edema stable.
-would give IV lasix after PRBC administrations, and follow volume. On Lasix 40 mg PO daily as OP.
-recent echo as below
ICM:
-EF 40-45%
-on ARB, BB, imdur, hydralazine as OP. Entresto and SGLT2 not affordable for patient per OP chart.
Physical Exam
Vital Signs/Labs
Vital Signs
Temp Pulse Resp BP Pulse Ox
36.8 C 92 23 136/90 99
10/29/23 07:29 10/29/23 08:00 10/29/23 08:00 10/29/23 06:00 10/29/23 07:00
10/28/23 10/29/23 10/30/23
06:59 06:59 06:59
Actual Weight 76.7 kg
10/28/23 04:14
Magnesium 2.1 mg/dl (1.6-2.3) 08/22/24 04:14
10/27/23
00:35
Eye-B-Olffexsjpjp Pept 4480
LAB Results
10/27/23
00:35
Troponin I 0.032
Physical Exam
Constitutional: No acute distress and Comfortable
Cardiovascular: Rhythm & rate is regular, Pedal edema is absent, Systolic murmur absent, Diastolic murmur absent and Pedal edema present (2+ LLE pitting edema)
Respiratory: Respiratory effort normal, Lungs clear to auscul., Wheeze Absent, Crackles Absent and Rhonchi Absent
GI: Soft
Neuro/Psych: Alert, Oriented and AO x 3
Data Reviewed
-
Date of Service: October 29, 2023
Medical Decision Making: Reviewed Test Results and Review of Case with other Provider
Labs: Labs Reviewed by me
[2023-10-29] MEDS: COZAAR 100 MG PO (08:36)
[2023-10-29] MEDS: COREG 3.125 MG PO ×2 (08:36→20:17)
--- NOTE | 2023-10-29 08:36 | W.PN.GI.CBS2 ---
Today's Communication / Plan
-
clears
PPI
monitor hgb
Assessment / Plan
-
Summary: 88yo with multiple med problems-metastatic prostate CA, CAD stents on ASA, CVA, NIDDM, asthma presents with abdominal and coffee ground emesis. Heme neg brown stool on rectal in ER. Pt repots abdominal pain is lower abdomen constant
about 6/[address] for last few days[address] CT- duodenitis at second portion, duodenal diverticulum. Hgb 5.6 on admission down from 8.6 on 10/13. BUN up to 46. He admits to taking Motrin several tablets daily for back pain. Pt denies hx EGD or colonoscopy in
past.
10/26- 2 units PRBCs
10/26 EGD-
Multiple superficial Lamine in antrum
Few DUs, largest in 2nd portion duodenum 15mm with adherent clot, injected with 6cc dilute epinephrine.
I decided not to remove clot since he took plavix 1-2 days ago
Impression:
-UGIB due to DU in second portion with overlying clot, injected 6cc epi. 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
-Acute blood loss anemia with 3 gram drop since 10/13
-coffee ground emesis
-CT with duodenitis/pancreatitis
-daily NSAID use for back pain
-acute on chronic CHF with LE swelling
other med problems:
-metastatic prostate CA with current rx with Dr. Solis
-CAD with stents on ADA
-hx CVA
-asthma
-NIDDM
-hypothyroidism
-HTN
-hypercholesterolemia
-TURP
Plan:
stable after 1 unit of prbcs. Hgb 6.9 to 7.8
continue PPI ggt
monitor hgb
BUN trending down
can have clears
Subjective
Subjective
Date of Service: October 29, 2023
Pt w/o active bleeding overnight (did d/w nurse)
did receive 1unit of prbcs overnight
Objective
Data Reviewed
Laboratory Data:
Laboratory Results
10/28/23 04:14
Laboratory Results
Magnesium 2.1 mg/dl (1.6-2.3) 10/28/23 04:14
Total Bilirubin 0.3 mg/dl (0.2-1.3) 10/27/23 00:27
AST 21 U/L (17-59) 10/27/23 00:27
ALT < 10 U/L (0-50) 10/27/23 00:27
Alkaline Phosphatase 114 U/L (38-126) 10/27/23 00:27
Lipase 173 U/L (23-300) 10/27/23 00:27
Vital Signs and I&O:
Vital Signs
Temp Pulse Resp BP Pulse Ox
98.3 F 92 23 136/90 99
10/29/23 07:29 10/29/23 08:00 10/29/23 08:00 10/29/23 06:00 10/29/23 07:00
I&O
10/28/23 10/29/23 10/30/23
06:59 06:59 06:59
Intake Total 490 / 490 610 / 610
Output Total 680 / 680 350 / 350
Balance -190 / -190 260 / 260
Physical Exam
Physical Exam
GI: Soft, Non Distended and Non Tender
[2023-10-29] MEDS: HYDROPHOR 1 APPLIC TOPICAL (09:00)
[2023-10-29 10:09] LABS: Glycohemoglobin (HgbA1c) 6.6 % (4.0-5.6)
--- NOTE | 2023-10-29 11:38 | CM ---
Patient seen at bedside. Patient states his is at [facility] for respite care and that he is anticipating that he will need SNF himself. patient stated that he is not wanting to go to [facility] but would like to consider SNF at [facility]
if needed. Patient does not have home O2. CM will continue to follow for discharge planning needs.
Plan; home with [facility] vs SNF
[2023-10-29 12:25] LABS: Glucose - Point of Care 155 mg/dl (70-99)
--- NOTE | 2023-10-29 13:10 | W.PN.HOSP.TC ---
Today's Communication/Plan
-
Discussed with the daughter over the phone yesterday
All discussed with the patient in detail expressed understanding
Discussed with him
Assessment / Plan
Assessment / Plan
Physical exam:
General: Awake, alert and oriented x3, not in distress and holds appropriate conversation.
HEENT: No active discharge, ecchymosis or bruising, moist lips, tongue and mucous membrane.
Eyes: No discharge or red conjunctiva, no nystagmus, pupils are reactive and equal
Neck:Supple, no JVD no bruit no goiter.
Respiratory: Normal AP contour and diameter, normal chest wall movement, normal respiratory effort, no respiratory distress,
Lungs: Good air entry bilaterally, no wheezing or rhonchi, no rales or crackles
Heart: S1, S2 regular, normal rate, no added sound.
Gastrointestinal: Positive bowel sounds, soft, mild epigastric tenderness, no guarding or rigidity or organomegaly
Extremities: Bilateral lower extremity pitting edema, open wound on right leg with evidence of cellulitis improving,, mostly in the right lundberg and medial aspect, good peripheral pulses, good range of motion
Skin: Warm and dry, , normal color. Right leg ulcer and cellulitis improved
88-year-old male presented with hematemesis, melena and abdominal pain been taking NSAID concern for peptic ulcer disease.
-Acute blood loss anemia: EGD showed multiple ulcers in stomach and duodenum, per GI did not remove clots because of recent intake of Plavix likely secondary to taking NSAIDs
Keep n.p.o. for now upper GI
So far status post 2 units of blood the latest one was yesterday
Monitor hemoglobin regularly
PPI drip
Continue hold aspirin and Plavix, had cardiac stent 9 months ago discussed with cardiology looks like elevated restarted back on aspirin alone, once cleared by GI,
Discussed with GI regarding restarting aspirin from the point of view not today if he is stable can be restarted tomorrow, Wednesday
Avoid NSAID and advised about not taking NSAIDs anymore.
Recheck labs
Started on a liquid diet
-Upper GI bleed: Secondary to multiple ulcers
Management as above status post 2 unit of blood
Leukocytosis: Likely reactive, improving
Recheck
Mild to moderate protein caloric malnutrition, total protein 4.9 albumin 2.7
Once able to be encouraged hydration intake.
Right leg cellulitis:
Patient that this is happening because of the Ke[employer] stocking,
Looks better, started on cefazolin, the wound grew MSSA and Klebsiella which is intermittently responding to cefazolin while sensitive to Rocephin
Changing biotic to Rocephin we will keep an IV because of the multiple Peptic ulcers for now
Blood and wound tissue culture reviewed
Wound care consult
Chronic systolic congestive heart failure EF around 40 to 45%:
Stable
Looks euvolemic now
Carvedilol
Cardiology consult.
Losartan
Hypothyroidism: Continue levothyroxine
Anticipated Discharge: > 48 hours
Subjective/Interval History
-
Date of Service: October 29, 2023
Seen and examined, awake and alert, sitting on the chair, looks and feels better no more hematemesis, no rectal bleed, denies abdominal pain no fever or chill or cough or congestion, have dressing on the right legs wound with looks much better.
Afebrile
Hemoglobin trended down to 6.9 yesterday received another unit of blood And the latest hemoglobin was 7.8.
Objective Data
-
Labs:
Laboratory Results
10/29/23 10/29/23 10/29/23
06:33 06:33 06:33
WBC 14.2 H
Hgb 8.0 L 7.8 L
Hct 24.1 L 23.3 L
Plt Count 270
Vital Signs:
Vital Signs
Temp Pulse Resp BP Pulse Ox
97.5 F 0 23 108/56 100
10/29/23 11:07 10/29/23 12:01 10/29/23 10:00 10/29/23 12:00 10/29/23 12:17
I&O
10/28/23 10/29/23 10/30/23
07:59 07:59 07:59
Intake Total 490 / 490 610 / 610 720 / 720
Output Total 580 / 580 350 / 350
Balance -90 / -90 260 / 260 720 / 720
Review of Systems
-
All other systems: Reviewed and negative
[2023-10-29] MEDS: ANCEF IV (13:17)
[2023-10-29] MEDS: NOVOLOG FLEXPEN-LOW RESISTANCE 1 UNITS SC (14:13)
[2023-10-29] MEDS: NSS 1000 IV (14:14)
[2023-10-29 14:58] LABS: Hematocrit 24.4 % (39.0-52.0); Hemoglobin 8.1 g/dL (13.0-18.0)
[2023-10-29] MEDS: STERILE WATER FOR INJECTION 10 ML IV (15:00)
[2023-10-29] MEDS: ROCEPHIN 1000 MG IV (15:31)
[2023-10-29 17:30] LABS: Glucose - Point of Care 108 mg/dl (70-99)
--- NOTE | 2023-10-29 19:53 | PTCARENOTE ---
day shift note.see nursing assessment. pt tolerating clear liquids. passing formed black stools x 3. no emesis or nausea. no c/o abd pain. oob in chair most of shift.
[2023-10-29 22:54] LABS: Glucose - Point of Care 140 mg/dl (70-99)
[2023-10-30] VITALS (8 sets, daily range): BP systolic 126–153; BP diastolic 47–108
[2023-10-30 00:32] LABS: Hematocrit 23.7 % (39.0-52.0)
[2023-10-30] MEDS: ULTRAM 50 MG PO ×3 (00:51→21:14)
--- NOTE | 2023-10-30 00:57 | PTCARENOTE ---
Caring for patient overnight. aaox3, pleasant. nsr pvc on monitor. remains 3LNC. oob to chair. bsc x1. hgbQ8h currently 8 holding steady, Bm's are dark black in color. C/o pain in back, prn ultram. changed dressing to RLE, see documentation. IVF.
Protonix gtt. Pt states he is very hungry and working up an appetite and looking forward to eating. VSS. Call white in reach, will continue to monitor.
[2023-10-30] MEDS: PROTONIX 100 IV (06:29)
[2023-10-30] MEDS: SYNTHROID 137 MCG PO (06:29)
[2023-10-30 08:25] LABS: Glucose - Point of Care 152 mg/dl (70-99)
[2023-10-30] MEDS: COZAAR 100 MG PO (08:27)
[2023-10-30] MEDS: COREG 3.125 MG PO ×2 (08:28→21:12)
[2023-10-30] MEDS: HYDROPHOR 1 APPLIC TOPICAL (08:30)
[2023-10-30] MEDS: NOVOLOG FLEXPEN-LOW RESISTANCE 1 UNITS SC (08:31)
[2023-10-30 08:33] LABS: Hemoglobin 8.3 g/dL (13.0-18.0)
--- NOTE | 2023-10-30 09:36 | W.PN.CD ---
Today's Communication / Plan
-
-Continue telemetry.
-Paroxysmal atrial fibrillation noted on the telemetry.
-High risk for bleeding and no chronic anticoagulation therapy at this time.
-Resume aspirin and Plavix when acceptable by GI.
Impression / Plan
-
Anemia, meqlb-il-xqgkqzn, severe:
-Hemoglobin down to 6.9-now stable at 8.1-8.3 this a.m.
-now status post EGD with injection of epi into duodenal ulcer
-required transfusion again overnight without active signs of bleeding
-ASA/plavix held in setting of severe anemia with active bleeding
-resume ASA as soon as deemed safe
-Hemoglobin is stable now.
CAD with hx multiple stents:
-most recent 02/02/23
-ASA/plavix held with severe anemia and acute bleed - resume ASA when safe; ok to stop plavix at this point given severe bleeding and 8 months therapy
-denies any CP
-EKG with t wave changes in setting of initial severe anemia
Paroxysmal atrial fibrillation
-Patient was noted to have multiple episodes of brief atrial fibrillation.
-Patient's [id number] score is 5 - age, hypertension, heart failure, coronary disease
-He he would be a candidate for chronic anticoagulation therapy however, patient is having active GI bleeding. We discussed options of stroke prevention. As per his wishes, I called his daughter and left a message.
-At this time we will not start him on any anticoagulation therapy given his active GI bleeding.
-He may be a candidate for Eliquis/Plavix. If GI bleeding remains an issue, he may be a candidate for watchman implantation.
HFmEF: chronic
-Appears to be euvolemic- denies orthopnea, PND. Lungs clear, chronic BLE edema stable.
-S/p PRBC. On Lasix 40 mg PO daily as OP.
-recent echo as below
ICM:
-EF 40-45%
-on ARB, BB, imdur, hydralazine as OP. Entresto and SGLT2 not affordable for patient per OP chart.
Physical Exam
Vital Signs/Labs
Vital Signs
Temp Pulse Resp BP Pulse Ox
97.5 F 78 15 148/108 100
10/30/23 07:40 10/30/23 08:27 10/30/23 04:00 10/30/23 08:27 10/30/23 04:00
10/28/23 04:14
Magnesium 2.1 mg/dl (1.6-2.3) 10/28/23 04:14
10/27/23
00:35
Eil-Z-Xbsiptinsxx Pept 4480
Physical Exam
Constitutional: No acute distress, Comfortable and Confusion
EENT: Anicteric and Moist mucous membranes
Cardiovascular: Rhythm & rate is regular, Pedal edema is absent, JVD pressure is normal and Systolic murmur present
Respiratory: Respiratory effort normal, Lungs clear to auscul., Wheeze Absent and Crackles Absent
GI: Soft, Non tender and Normal bowel sounds
Neuro/Psych: Alert, Oriented and Other (Hard of hearing)
Data Reviewed
-
Date of Service: October 30, 2023
Medical Decision Making: Reviewed Test Results, Independent Historian Assessment and Test Interpretation
EKG: Tracing Personally Visualized and interpreted
Echo: Report Reviewed by me
Labs: Labs Reviewed by me
Old Records: Reviewed
--- NOTE | 2023-10-30 09:46 | PTCARENOTE ---
Pt OOB to chair, pt is very hungry and states he needs solid food. Awaiting GI
--- NOTE | 2023-10-30 10:41 | W.PN.HOSP.TC ---
Today's Communication/Plan
-
Follow H&H and advance diet.
Continue with IV PPI and antibiotics.
Transfer to telemetry
Assessment / Plan
Assessment / Plan
88-year-old male presented with hematemesis, melena and abdominal pain been taking NSAID concern for peptic ulcer disease.
Acute blood loss anemia secondary to upper GI bleed: EGD showed multiple ulcers in stomach and duodenum, per GI did not remove clots because of recent intake of Plavix likely secondary to taking NSAIDs
Keep n.p.o. for now upper GI
So far status post 3 units of blood
H&H more than 8 and stable
Monitor hemoglobin regularly
Continue with PPI drip
Continue hold aspirin and Plavix, had cardiac stent 9 months ago discussed with cardiology looks like elevated restarted back on aspirin alone, once cleared by GI,
Discussed with GI regarding restarting aspirin from the point of view not today if he is stable can be restarted Wednesday. For the next H&H check and if stable will start on aspirin.
Avoid NSAID and advised about not taking NSAIDs anymore.
Started on a liquid diet
Advance diet per GI
Leukocytosis: Likely reactive; cannot rule out secondary to right leg cellulitis
Mild to moderate protein caloric malnutrition, total protein 4.9 albumin 2.7
Once able to be encouraged hydration intake.
Right leg cellulitis:
Patient that this is happening because of the Keaton stocking,
Looks better, started on cefazolin, the wound grew MSSA and Klebsiella which is intermittently responding to cefazolin while sensitive to Rocephin
Continue with Rocephin
Blood and wound tissue culture reviewed
Wound care consult
Chronic systolic congestive heart failure EF around 40 to 45%:
Stable
Looks euvolemic now
Carvedilol
Losartan
Cardiology following
Hypothyroidism: Continue levothyroxine
Anticipated Discharge: 24 - 48 hours
Subjective/Interval History
-
Date of Service: October 30, 2023
Abdominal pain resolved. No nausea vomiting. Hungry.
Objective Data
-
Labs:
Laboratory Results
10/30/23 10/30/23 10/30/23
00:23 08:20 15:30
Hgb 8.0 L 8.3 L Pending
Hct 23.7 L 25.0 L Pending
10/30/23
23:30
Hgb Pending
Hct Pending
Vital Signs:
Vital Signs
Temp Pulse Resp BP Pulse Ox
97.5 F 78 15 148/108 100
10/30/23 07:40 10/30/23 08:27 10/30/23 04:00 10/30/23 08:27 10/30/23 04:00
I&O
10/29/23 10/30/23 10/31/23
06:59 06:59 06:59
Intake Total 610 / 610 1220 / 1220
Output Total 350 / 350 550 / 550
Balance 260 / 260 670 / 670
Review of Systems
-
Constitutional: Denies Fever
Respiratory: Denies Trouble Breathing
Cardiac: Denies Chest Pain
Abdomen/GI: Denies Abdominal Pain, Nausea or Vomiting
Neuro: Denies Dizzy
Physical Exam
-
General: No Apparent Distress
HEENT: Moist Mucous Membranes
Respiratory: Clear to Auscultation and Non Labored Respirations; Negative Accessory Resp Muscle Use
Cardiac: Regular Rhythm and S1/S2; Negative Tachycardic
GI: Soft and Nontender
Neuro: AO x 3
Data Reviewed
-
Labs: Labs Reviewed by me
--- NOTE | 2023-10-30 12:14 | PTCARENOTE ---
Repport 4 th floor . Pt still wants to eat awaiting GI
[2023-10-30 12:17] LABS: Glucose - Point of Care 130 mg/dl (70-99)
[2023-10-30] MEDS: NOVOLOG FLEXPEN-LOW RESISTANCE SC ×2 (12:32→16:13)
[2023-10-30] MEDS: ROCEPHIN 1000 MG IV (13:09)
[2023-10-30] MEDS: STERILE WATER FOR INJECTION 10 ML IV (13:09)
--- NOTE | 2023-10-30 13:28 | W.PN.GI.CBS2 ---
Today's Communication / Plan
-
advanced diet
Assessment / Plan
-
Summary: 88yo with multiple med problems-metastatic prostate CA, CAD stents on ASA, CVA, NIDDM, asthma presents with abdominal and coffee ground emesis. Heme neg brown stool on rectal in ER. Pt repots abdominal pain is lower abdomen constant
about 6/10 for last few days. CT- duodenitis at second portion, duodenal diverticulum. Hgb 5.6 on admission down from 8.6 on 10/13. BUN up to 46. He admits to taking Motrin several tablets daily for back pain. Pt denies hx EGD or colonoscopy in
past.
10/26- 2 units PRBCs
10/26 EGD-
Multiple superficial Lamine in antrum
Few DUs, largest in 2nd portion duodenum 15mm with adherent clot, injected with 6cc dilute epinephrine.
I decided not to remove clot since he took plavix 1-2 days ago
Impression:
-UGIB due to DU in second portion with overlying clot, injected 6cc epi. 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
-Acute blood loss anemia with 3 gram drop since 10/13
-coffee ground emesis
-CT with duodenitis/pancreatitis
-daily NSAID use for back pain
-acute on chronic CHF with LE swelling
other med problems:
-metastatic prostate CA with current rx with Dr. Solis
-CAD with stents on ADA
-hx CVA
-asthma
-NIDDM
-hypothyroidism
-HTN
-hypercholesterolemia
-TURP
Plan:
hgb has remained stable
PPI bid
ok for aspirin, not going back on plavix
advanced diet to cardiac
will sign off call with questions
Subjective
Subjective
Date of Service: October 30, 2023
Pt with a DU bleed, none since scope. Hungry, no abdominal pain
Objective
Data Reviewed
Laboratory Data:
Laboratory Results
10/28/23 04:14
Laboratory Results
Magnesium 2.1 mg/dl (1.6-2.3) 10/28/23 04:14
Total Bilirubin 0.3 mg/dl (0.2-1.3) 10/27/23 00:27
AST 21 U/L (17-59) 10/27/23 00:27
ALT < 10 U/L (0-50) 10/27/23 00:27
Alkaline Phosphatase 114 U/L (38-126) 10/27/23 00:27
Lipase 173 U/L (23-300) 10/27/23 00:27
Vital Signs and I&O:
Vital Signs
Temp Pulse Resp BP Pulse Ox
97.4 F 69 13 148/108 96
10/30/23 11:25 10/30/23 11:00 10/30/23 11:00 10/30/23 08:27 10/30/23 11:20
I&O
10/29/23 10/30/23 10/31/23
06:59 06:59 06:59
Intake Total 610 / 610 1220 / 1220
Output Total 350 / 350 550 / 550
Balance 260 / 260 670 / 670
Physical Exam
Physical Exam
GI: Soft, Non Distended and Non Tender
[2023-10-30] MEDS: PROTONIX IV (14:58)
[2023-10-30 16:12] LABS: Glucose - Point of Care 129 mg/dl (70-99)
[2023-10-30 16:57] LABS: Hematocrit 25.1 % (39.0-52.0); Hemoglobin 8.7 g/dL (13.0-18.0)
[2023-10-30] MEDS: NSS (PRESERVATIVE FREE) 10 ML IV (21:13)
[2023-10-30] MEDS: PROTONIX IV 40 MG IV (21:13)
[2023-10-30 22:12] LABS: Glucose - Point of Care 97 mg/dl (70-99)
[2023-10-30 23:52] LABS: Hematocrit 22.3 % (39.0-52.0); Hemoglobin 7.6 g/dL (13.0-18.0)
[2023-10-31] VITALS (9 sets, daily range): BP systolic 107–160; BP diastolic 39–70
--- NOTE | 2023-10-31 02:50 | PTCARENOTE ---
Pt aaox3,forgetful at times only. 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 No new orders at this time. Will recheck am labs.
[2023-10-31] MEDS: ULTRAM 50 MG PO ×3 (03:38→16:05)
[2023-10-31] MEDS: SYNTHROID 137 MCG PO (05:16)
[2023-10-31 08:10] LABS: Hemoglobin 7.6 g/dL (13.0-18.0); Mean Corpuscular Hgb 29.2 pg (27.0-31.0); Mean Corpuscular Volume 88.5 fL (80.0-94.0); Platelet Count 327 10^3/uL (130-400); Red Cell Dist. Width 17.7 % (11.5-14.5); White Blood Cell Count 11.8 10^3/uL (4.8-10.8)
[2023-10-31 08:10] LABS: Glucose - Point of Care 110 mg/dl (70-99)
--- NOTE | 2023-10-31 08:10 | W.PN.CD ---
Today's Communication / Plan
-
-No need for Plavix. Resume aspirin when acceptable by GI
-Transient atrial fibrillation noted. He is not a good candidate for chronic anticoagulation therapy at this time.
Impression / Plan
-
Anemia, aneio-oc-fystxtk, severe:
-Hemoglobin down to 6.9-now stable at 8.1-7.6 this a.m.
-now status post EGD with injection of epi into duodenal ulcer
-required transfusion again overnight without active signs of bleeding
-ASA/plavix held in setting of severe anemia with active bleeding
-resume ASA as soon as deemed safe
CAD with hx multiple stents:
-most recent 02/02/23
-ASA/plavix held with severe anemia and acute bleed - resume ASA when safe; ok to stop plavix at this point given severe bleeding and 8 months therapy
-denies any CP
-EKG with t wave changes in setting of initial severe anemia
Paroxysmal atrial fibrillation
-Patient was noted to have multiple episodes of brief atrial fibrillation.
-Patient's [id number] score is 5 - age, hypertension, heart failure, coronary disease
-He he would be a candidate for chronic anticoagulation therapy however, patient is having active GI bleeding. We discussed options of stroke prevention. As per his wishes, I called his daughter and left a message.
-At this time we will not start him on any anticoagulation therapy given his active GI bleeding.
-He may be a candidate for Eliquis/ASA. If GI bleeding remains an issue, he may be a candidate for watchman implantation.
HFmEF: chronic
-Appears to be euvolemic- denies orthopnea, PND. Lungs clear, chronic BLE edema stable.
-S/p PRBC. On Lasix 40 mg PO daily as OP.
-recent echo as below
ICM:
-EF 40-45%
-on ARB, BB, imdur, hydralazine as OP. Entresto and SGLT2 not affordable for patient per OP chart.
Physical Exam
Vital Signs/Labs
Vital Signs
Temp Pulse Resp BP Pulse Ox
97.8 F 75 18 143/58 98
10/31/23 03:26 10/31/23 03:26 10/31/23 03:26 10/31/23 03:26 10/31/23 03:26
10/31/23 06:58
10/28/23 04:14
Magnesium 2.1 mg/dl (1.6-2.3) 10/28/23 04:14
10/27/23
00:35
Bkw-C-Tbukfrecoep Pept 4480
Physical Exam
Constitutional: No acute distress and Comfortable
EENT: Anicteric and Moist mucous membranes
Cardiovascular: Rhythm & rate is regular, Pedal edema is absent, JVD pressure is normal and Systolic murmur absent
Respiratory: Respiratory effort normal, Lungs clear to auscul. and Wheeze Absent
GI: Non tender and Normal bowel sounds
Neuro/Psych: Alert, Oriented and AO x 3
Data Reviewed
-
Date of Service: October 31, 2023
Medical Decision Making: Reviewed Test Results and Independent Historian Assessment
EKG: Tracing Personally Visualized and interpreted
Echo: Report Reviewed by me
Labs: Labs Reviewed by me
Old Records: Reviewed
[2023-10-31] MEDS: NOVOLOG FLEXPEN-LOW RESISTANCE SC (08:58)
[2023-10-31] MEDS: PROTONIX IV 40 MG IV ×2 (09:00→20:53)
[2023-10-31] MEDS: NSS (PRESERVATIVE FREE) 10 ML IV ×2 (09:00→20:53)
[2023-10-31] MEDS: COREG 3.125 MG PO ×2 (09:01→20:54)
[2023-10-31] MEDS: COZAAR 100 MG PO (09:01)
[2023-10-31] MEDS: HYDROPHOR 1 APPLIC TOPICAL (09:04)
[2023-10-31 11:49] LABS: Glucose - Point of Care 194 mg/dl (70-99)
[2023-10-31] MEDS: NOVOLOG FLEXPEN-LOW RESISTANCE 1 UNITS SC ×2 (12:17→16:48)
--- NOTE | 2023-10-31 13:21 | W.PN.HOSP.TC ---
Today's Communication/Plan
-
Transfuse one unit of PRBC
Assessment / Plan
Assessment / Plan
88-year-old male presented with hematemesis, melena and abdominal pain been taking NSAID concern for peptic ulcer disease.
Acute blood loss anemia secondary to upper GI bleed: EGD showed multiple ulcers in stomach and duodenum, per GI did not remove clots because of recent intake of Plavix likely secondary to taking NSAIDs
Resolved abdo pain and feeling improved.
So far status post 3 units of blood
H&H 7.6 today with no external bleeding
Monitor hemoglobin regularly
Continue with PPI drip per GI
Continue hold Plavix, had cardiac stent 9 months ago
Restarted back on ASA Wednesday.
Avoid NSAID and advised about not taking NSAIDs anymore.
CW diet per GI
Will aim to keep HH >8 in view of cardiac disease
Transfuse one more unit of PRBC
Leukocytosis: Likely reactive; cannot rule out secondary to right leg cellulitis
Mild to moderate protein caloric malnutrition, total protein 4.9 albumin 2.7
Once able to be encouraged hydration intake.
Right leg cellulitis:
Patient that this is happening because of the [employer] stocking,
wound grew MSSA and Klebsiella
Continue with Rocephin
CW Wound care
Chronic systolic congestive heart failure EF around 40 to 45%:
Stable
Looks euvolemic now
Carvedilol
Losartan
Cardiology following
Hypothyroidism: Continue levothyroxine
Anticipated Discharge: 24 - 48 hours
Subjective/Interval History
-
Date of Service: October 31, 2023
Feels improved.
Resolved abdo pain.
Tolerating diet.
Objective Data
-
Labs:
Laboratory Results
10/31/23
06:58
WBC 11.8 H
Hgb 7.6 L
Hct 23.0 L
Plt Count 327 D
Vital Signs:
Vital Signs
Temp Pulse Resp BP Pulse Ox
97.6 F 64 22 107/39 97
10/31/23 11:03 10/31/23 11:03 10/31/23 11:03 10/31/23 11:03 10/31/23 11:03
I&O
10/30/23 10/31/23 11/01/23
06:59 06:59 06:59
Intake Total 1220 / 1220
Output Total 550 / 550
Balance 670 / 670
Review of Systems
-
Respiratory: Denies Trouble Breathing
Cardiac: Denies Chest Pain
Abdomen/GI: Denies Abdominal Pain, Nausea or Vomiting
Neuro: Denies Dizzy
Physical Exam
-
General: No Apparent Distress
HEENT: Moist Mucous Membranes
Respiratory: Clear to Auscultation
Cardiac: Regular Rhythm and S1/S2
GI: Soft
Neuro: AO x 3
Psych: Calm
Data Reviewed
-
Labs: Labs Reviewed by me
--- NOTE | 2023-10-31 13:54 | CM ---
Patient with Dx upper GI bleed anemia s/p transfusions, Right leg cellulitis. O2 3L. Receiving IV Abx. Wound care right leg daily.
Received phone call from daughter Angel;
she is asking if her father could go to [facility] for rehab as he is complaining of weakness. She would like a callback after we determine his rehab needs. Daughter confirms that the LTC plan is for her father to move in with her in [facility]
once her mother can be relocated to a SNF near her.
Message to Dr Hays requesting PT/OT Evals.
Plan follow up with patient and daughter after seen by PT/OT.
[2023-10-31] MEDS: STERILE WATER FOR INJECTION 10 ML IV (14:02)
[2023-10-31] MEDS: ROCEPHIN 1000 MG IV (14:02)
[2023-10-31] MEDS: LASIX IV (14:02)
--- NOTE | 2023-10-31 15:07 | PTCARENOTE ---
Patient's HGB today 7.6 - same as yesterday. MD ordered one unit of Packed RBCs. Lab called to notify that patient needs another type and cross as it is . Type and cross sent and awaiting readiness of blood.
[2023-10-31 16:46] LABS: Glucose - Point of Care 159 mg/dl (70-99)
--- NOTE | 2023-10-31 17:53 | PTCARENOTE ---
Patient with HGB 7.6. 1 unit of PRBCs ordered. Vital signs stable. Transfusion started via left #20 in lower forearm. Tolerating well at this time. No signs of transfusion reaction. Will monitor.
[2023-10-31] MEDS: LASIX 20 MG IV (22:03)
[2023-10-31 22:18] LABS: Glucose - Point of Care 113 mg/dl (70-99)
[2023-11-01] VITALS (8 sets, daily range): BP systolic 114–150; BP diastolic 50–76; PULSE 74; O2SAT 98; BMI 26.6
[2023-11-01] MEDS: ULTRAM 50 MG PO ×3 (00:50→20:17)
[2023-11-01] MEDS: SYNTHROID 137 MCG PO (05:20)
[2023-11-01 07:37] LABS: Blood Urea Nitrogen 17 mg/dl (9-20); Calcium 7.4 mg/dl (8.4-10.2); Carbon Dioxide 28 mmol/L (22-30); Chloride 105 mmol/L (98-107); Estimated Creatinine Clearance 68 ml/min; Glucose 113 mg/dl (70-99); Potassium 3.7 mmol/L (3.5-5.1); Sodium 140 mmol/L (135-145); eGFR > 60.00
[2023-11-01] MEDS: COREG 3.125 MG PO ×2 (08:18→20:11)
[2023-11-01] MEDS: NOVOLOG FLEXPEN-LOW RESISTANCE SC ×2 (08:19→17:14)
[2023-11-01] MEDS: COZAAR 100 MG PO (08:20)
[2023-11-01] MEDS: HYDROPHOR 1 APPLIC TOPICAL (08:20)
[2023-11-01] MEDS: NSS (PRESERVATIVE FREE) 10 ML IV ×2 (08:21→20:11)
[2023-11-01] MEDS: PROTONIX IV 40 MG IV ×2 (08:21→20:11)
[2023-11-01 08:25] LABS: Glucose - Point of Care 126 mg/dl (70-99)
[2023-11-01 08:30] LABS: Hematocrit 27.4 % (39.0-52.0); Hemoglobin 9.3 g/dL (13.0-18.0); Mean Corp Hgb Conc. 33.9 g/dL (33.0-37.0); Mean Corpuscular Hgb 30.5 pg (27.0-31.0); Mean Corpuscular Volume 89.8 fL (80.0-94.0); Mean Platelet Volume 10.3 fL (7.4-10.4); Platelet Count 318 10^3/uL (130-400); Red Blood Cell Count 3.05 10^6/uL (4.70-6.10); Red Cell Dist. Width 16.8 % (11.5-14.5); White Blood Cell Count 9.8 10^3/uL (4.8-10.8)
[2023-11-01] MEDS: LOW STRENGTH ASPIRIN 81 MG PO (08:58)
--- NOTE | 2023-11-01 11:39 | W.PN.CD ---
Today's Communication / Plan
-
Continue ASA 81mg daily. No Plavix or eliquis.
please call us back with additional questions
Impression / Plan
-
Anemia, qcmur-tn-szmxybp, severe:
-in setting of DAPT
-eval per GI
-cont ASA 81mg daily monotherapy
CAD with hx multiple stents:
-most recent 02/02/23
-ASA/plavix held with severe anemia and acute bleed - will not resume plavix
-denies any CP
-EKG with t wave changes in setting of initial severe anemia
Paroxysmal atrial fibrillation
-Patient was noted to have multiple episodes of brief atrial fibrillation.
-Patient's [id number] score is 5 - age, hypertension, heart failure, coronary disease
-not a candidate for OAC at this time, with severe GI bleed
-can consider Watchman evaluation as outpatient
HFmEF: chronic
-Appears to be euvolemic- denies orthopnea, PND. Lungs clear, chronic BLE edema stable.
-s/p PRBC. On Lasix 40 mg PO daily as OP: resume tomorrow
ICM:
-EF 40-45%
-on ARB, BB, imdur, hydralazine as OP. Entresto and SGLT2 not affordable for patient per OP chart.
Physical Exam
Vital Signs/Labs
Vital Signs
Temp Pulse Resp BP Pulse Ox
98.1 F 83 20 114/76 97
11/01/23 08:24 11/01/23 08:24 11/01/23 08:24 11/01/23 08:24 11/01/23 08:24
10/31/23 11/01/23 11/02/23
06:59 06:59 06:59
Actual Weight 76.884 kg
11/01/23 06:32
11/01/23 06:32
Magnesium 2.1 mg/dl (1.6-2.3) 10/28/23 04:14
10/27/23
00:35
Ryq-S-Ohofnupconw Pept [id number]
Physical Exam
Constitutional: No acute distress and Comfortable
EENT: Moist mucous membranes
Cardiovascular: Rhythm & rate is regular, Pedal edema is absent, JVD pressure is normal and Systolic murmur absent
Respiratory: Respiratory effort normal and Lungs clear to auscul.
GI: Distention absent
Neuro/Psych: AO x 3
Data Reviewed
-
Date of Service: November 01, 2023
EKG: Other (Tele: SR 60s-70s, PVC's)
Labs: Labs Reviewed by me
--- NOTE | 2023-11-01 12:09 | CM ---
CM is following for SNF transfer for short term rehabilitation. Pt has a 3 day stay and both PT and OT are recommending SNF transfer for short term rehab.
Preference is for [facility]; referral sent via [facility] this am. Pt's is currently at [place]; family working on transferring her closer to daughter in [place], [place] and Ben will move to [facility] following SNF stay.
CM will continue to follow for transfer to [facility] pending medical stability and acceptance for same.
Plan: Transfer to SNF for short term rehab services.
PCP - Michel Parish
Pharmacy - [facility]
[2023-11-01 12:36] LABS: Glucose - Point of Care 164 mg/dl (70-99)
[2023-11-01] MEDS: NOVOLOG FLEXPEN-LOW RESISTANCE 1 UNITS SC (12:38)
--- NOTE | 2023-11-01 12:48 | PTCARENOTE ---
Air mattress overlay placed on bed. Dressing changes to right leg completed. Sacral foam intact from yesterday. Encouraged patient to turn frequently. Patient using chair cushion while OOB. Also has small blisters on left lower leg that are MONIQUE.
[2023-11-01] MEDS: ROCEPHIN 1000 MG IV (13:42)
[2023-11-01] MEDS: STERILE WATER FOR INJECTION 10 ML IV (13:42)
--- NOTE | 2023-11-01 14:11 | W.PN.HOSP.TC ---
Today's Communication/Plan
-
restart asa 81mg
monitor hgb
Assessment / Plan
Assessment / Plan
88-year-old male presented with hematemesis, melena and abdominal pain been taking NSAID concern for peptic ulcer disease.
Acute blood loss anemia secondary to upper GI bleed: EGD showed multiple ulcers in stomach and duodenum, per GI did not remove clots because of recent intake of Plavix likely secondary to taking NSAIDs
Resolved abdo pain and feeling improved.
So far status post 4 units of blood
HgB remains stable
PPI IV BID
Monitor CBC
-Restart ASA 81mg and monitor
Avoid NSAIDS
-Cont diet
-F/u GI outpatient
Leukocytosis: Likely reactive; cannot rule out secondary to right leg cellulitis - improving
Mild to moderate protein caloric malnutrition, total protein 4.9 albumin 2.7
Once able to be encouraged hydration intake.
Right leg cellulitis:
Patient that this is happening because of the [employer] stocking,
wound grew MSSA and Klebsiella
Continue with Rocephin - treat 7 days total - can dc on cefdinir
CW Wound care
Chronic systolic congestive heart failure EF around 40 to 45%:
Stable
Looks euvolemic now
Carvedilol
Losartan
Cardiology following
Hypothyroidism: Continue levothyroxine
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
-f/u outpatient at [place]
DVT ppx
-asa
-holding on anticoag at this time
Anticipated Discharge: 24 - 48 hours
Subjective/Interval History
-
Date of Service: November 01, 2023
No acute events, hemoglobin stable. Started back on aspirin
Objective Data
-
Labs:
Laboratory Results
11/01/23
06:32
WBC 9.8
Hgb 9.3 L D
Hct 27.4 L
Plt Count 318
Sodium 140
Potassium 3.7
Chloride 105
Carbon Dioxide 28
BUN 17
Creatinine 0.7
Glucose 113 H
Calcium 7.4 L
Vital Signs:
Vital Signs
Temp Pulse Resp BP Pulse Ox
98.2 F 58 20 119/50 96
11/01/23 12:27 11/01/23 12:27 11/01/23 12:27 11/01/23 12:27 11/01/23 12:27
I&O
10/31/23 11/01/23 11/02/23
06:59 06:59 06:59
Intake Total 1260 / 1260
Balance 1260 / 1260
Review of Systems
-
History Source: Patient
All other systems: Not reviewed unless documented
Physical Exam
-
General: No Apparent Distress
HEENT: Moist Mucous Membranes
Respiratory: Clear to Auscultation
Cardiac: Regular Rhythm and S1/S2
GI: Soft
Neuro: AO x 3
Psych: Calm
Data Reviewed
-
CT Scan: Image personally visualized and interpreted and Report Reviewed by me
Labs: Labs Reviewed by me
[2023-11-01 17:06] LABS: Glucose - Point of Care 147 mg/dl (70-99)
[2023-11-01 21:30] LABS: Glucose - Point of Care 147 mg/dl (70-99)
[2023-11-02 03:10] VITALS: BP 148/66
[2023-11-02] MEDS: SYNTHROID 137 MCG PO (04:38)
[2023-11-02] MEDS: ULTRAM 50 MG PO ×2 (04:38→08:18)
[2023-11-02 05:35] LABS: Blood Urea Nitrogen 15 mg/dl (9-20); Calcium 7.5 mg/dl (8.4-10.2); Carbon Dioxide 27 mmol/L (22-30); Chloride 106 mmol/L (98-107); Estimated Creatinine Clearance 68 ml/min; Glucose 110 mg/dl (70-99); Potassium 4.4 mmol/L (3.5-5.1); Sodium 142 mmol/L (135-145); eGFR > 60.00
[2023-11-02 05:38] LABS: Hematocrit 28.6 % (39.0-52.0); Hemoglobin 9.5 g/dL (13.0-18.0); Mean Corp Hgb Conc. 33.2 g/dL (33.0-37.0); Mean Corpuscular Hgb 29.3 pg (27.0-31.0); Mean Corpuscular Volume 88.3 fL (80.0-94.0); Mean Platelet Volume 10.3 fL (7.4-10.4); Platelet Count 413 10^3/uL (130-400); Red Blood Cell Count 3.24 10^6/uL (4.70-6.10); Red Cell Dist. Width 17.2 % (11.5-14.5); White Blood Cell Count 12.3 10^3/uL (4.8-10.8)
[2023-11-02 06:00] VITALS: BMI 28.3
[2023-11-02 07:35] VITALS: BP 119/56
[2023-11-02 08:09] LABS: Glucose - Point of Care 115 mg/dl (70-99)
[2023-11-02] MEDS: NOVOLOG FLEXPEN-LOW RESISTANCE SC ×2 (08:14→12:44)
[2023-11-02] MEDS: PROTONIX IV 40 MG IV (08:17)
[2023-11-02] MEDS: NSS (PRESERVATIVE FREE) 10 ML IV (08:18)
[2023-11-02] MEDS: COZAAR 100 MG PO (08:18)
[2023-11-02] MEDS: COREG 3.125 MG PO (08:18)
[2023-11-02] MEDS: LASIX 40 MG PO (08:18)
[2023-11-02] MEDS: LOW STRENGTH ASPIRIN 81 MG PO (08:18)
[2023-11-02] MEDS: HYDROPHOR 1 APPLIC TOPICAL (08:19)
[2023-11-02 10:31] VITALS: BP 96/45; PULSE 68; O2SAT 99
[2023-11-02 11:15] VITALS: BP 117/55
[2023-11-02 13:00] LABS: Glucose - Point of Care 160 mg/dl (70-99)
[2023-11-02] MEDS: NOVOLOG FLEXPEN-LOW RESISTANCE 1 UNITS SC (13:04)
--- NOTE | 2023-11-02 13:33 | W.PN.HOSP.TC ---
Addendum entered and electronically signed by Franco Robert MD 11/02/23 16:09:
[id number]
Original Note:
Today's Communication/Plan
-
asa
ppi bid
cardiac diet
hold hydralazine, amlodipine - can restart outpatient if BPs can tolerate
cbc in 2-3 days to monitor WBC and HgB
complete abx course - cefdinir 300mg bid
Assessment / Plan
Assessment / Plan
88-year-old male presented with hematemesis, melena and abdominal pain been taking NSAID concern for peptic ulcer disease.
Acute blood loss anemia secondary to upper GI bleed: EGD showed multiple ulcers in stomach and duodenum, per GI did not remove clots because of recent intake of Plavix likely secondary to taking NSAIDs
Resolved abdo pain and feeling improved.
So far status post 4 units of blood
HgB remains stable
PPI BID
Monitor CBC - f/u hgb in 2-3 days
-Restart ASA 81mg and monitor
Avoid NSAIDS; no plavix
-Cont diet
-F/u GI outpatient
Leukocytosis: Likely reactive; cannot rule out secondary to right leg cellulitis; f/u cbc outpatient
Mild to moderate protein caloric malnutrition, total protein 4.9 albumin 2.7
Once able to be encouraged hydration intake.
Right leg cellulitis:
Patient that this is happening because of the [employer] stocking,
wound grew MSSA and Klebsiella
Continue with Rocephin - treat 10 days total - can dc on cefdinir to complete course
CW Wound care
Chronic systolic congestive heart failure EF around 40 to 45%:
Stable
Looks euvolemic now
Carvedilol
Losartan
Cardiology following
-F/u Cards outpatient
Hypertension
-hold amlodipine and hydralazine for now - can resume outpatient if BPs tolerate
Hypothyroidism: Continue levothyroxine
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
-f/u outpatient at [place]
DVT ppx
-asa
-holding on anticoag at this time
More than 30 minutes spent in discharge including
Final examination of the patient
Summarizing hospital stay
Instructions for continuing care to all relevant caregivers
Preparation of discharge records, prescriptions, and referral forms
Total time spent (35 in minutes):
Anticipated Discharge: Today
Subjective/Interval History
-
Date of Service: November 02, 2023
No acute events
Objective Data
-
Labs:
Laboratory Results
11/02/23
04:41
WBC 12.3 H
Hgb 9.5 L
Hct 28.6 L
Plt Count 413 H D
Sodium 142
Potassium 4.4
Chloride 106
Carbon Dioxide 27
BUN 15
Creatinine 0.7
Glucose 110 H
Calcium 7.5 L
Vital Signs:
Vital Signs
Temp Pulse Resp BP Pulse Ox
97.6 F 62 16 117/55 93
11/02/23 11:15 11/02/23 11:15 11/02/23 11:15 11/02/23 11:15 11/02/23 11:15
I&O
11/01/23 11/02/23 11/03/23
06:59 06:59 06:59
Intake Total 1260 / 1260 840 / 840
Balance 1260 / 1260 840 / 840
Review of Systems
-
History Source: Patient
All other systems: Not reviewed unless documented
Physical Exam
-
General: No Apparent Distress
HEENT: Moist Mucous Membranes
Respiratory: Clear to Auscultation
Cardiac: Regular Rhythm and S1/S2
GI: Soft
Neuro: AO x 3
Psych: Calm
Data Reviewed
-
CT Scan: Image personally visualized and interpreted and Report Reviewed by me
Labs: Labs Reviewed by me
--- NOTE | 2023-11-02 13:37 | W.DS.TRANS ---
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
-
Discharge Instructions:
Sleep Apnea Risk Intermediate
Discharge Diagnosis/Procedures Acute blood loss anemia secondary to upper GI
bleed
cellulitis
Diet Low Cholesterol,Low Fat
Blood Work cbc in 2-3 days to ensure hgb stability
Instructions:
Stand-Alone Forms:
Changes to Home Medications: Yes
Discharge Medications:
DC Medications w/original date entered in [employer]
atorvastatin 40 mg tablet 40 mg PO QPM High cholesterol 11/02/19
aspirin 81 mg tablet,delayed release 81 mg PO DAILY Blood Clot Prevention/Tx 07/23/20
acetaminophen 500 mg tablet (Tylenol Extra Strength) 1,000 mg PO TID Pain 12/22/22
albuterol sulfate 90 mcg/actuation aerosol inhaler 2 puff inhalation R Q4HPRN PRN sob 12/22/22
calcium carbonate (Calcium 600) 1,200 mg PO BID PRN GERD 12/22/22
levothyroxine 137 mcg tablet 137 mcg PO DAILY Thyroid 12/22/22
losartan 100 mg tablet 100 mg PO DAILY Blood Pressure 12/22/22
therapeutic multivitamin 1 tab PO DAILY Supplement 12/22/22
carvedilol 3.125 mg tablet 3.125 mg PO BID #60 tabs 12/26/22
furosemide 40 mg tablet 40 mg PO DAILY #30 tabs 12/26/22
fluticasone propionate 50 mcg/actuation nasal spray,suspension 1 spray intranasal Q12H PRN nasal congestion 02/02/23
ondansetron 4 mg disintegrating tablet 4 mg PO Q6H PRN nausea 02/02/23
nitroglycerin 0.4 mg sublingual tablet 0.4 mg sublingual [id number] PRN chest pain #25 tabs 02/03/23
amlodipine 10 mg tablet 10 mg PO DAILY Blood Pressure 10/27/23
cholecalciferol (vitamin D3) 50 mcg (2,000 unit) tablet (Vitamin D3) 50 mcg PO DAILY Supplement 10/27/23
hydralazine 25 mg tablet 25 mg PO TID Blood Pressure 10/27/23
cefdinir 300 mg capsule 300 mg PO BID 6 days #12 caps 11/02/23
pantoprazole 40 mg tablet,delayed release 40 mg PO BID 30 days #60 tabs 11/02/23
tramadol 50 mg tablet 50 mg PO Q6H PRN pain rt low back #8 tabs 11/02/23
white petrolatum 42 % topical ointment (Hydrophor) 1 applic topical DAILY #454 grams 11/02/23
Home Medication Changes
cefdinir 300 mg capsule 300 mg PO BID 6 days #12 caps 11/02/23
pantoprazole 40 mg tablet,delayed release 40 mg PO BID 30 days #60 tabs 11/02/23
tramadol 50 mg tablet 50 mg PO Q6H PRN pain rt low back #8 tabs 11/02/23
white petrolatum 42 % topical ointment (Hydrophor) 1 applic topical DAILY #454 grams 11/02/23
Pending Results: No
--- NOTE | 2023-11-02 14:22 | PTCARENOTE ---
Patient to be discharged to [facility] today. Wheel chair van arranged for 1600. Peripheral IV and tele removed. Patient in agreement with plan.
--- NOTE | 2023-11-02 14:25 | CM ---
CM met with Mr. Torres today to discuss SNF transfer. He has chosen [facility] for SN[facility] and will be transferred there today at 1600 via w/c van. VM left for his daughter regarding need to call [phone] to pay for transportation cost of $90, as Mr.
Brian does not have his wallet at the hospital.
Plan: Transfer to [facility] today via w/c van at 4pm. Payment pending, as daughter is currently at work and have not been able to reach her.
[facility] Report:[phone]
[facility]
--- NOTE | 2023-11-02 14:48 | PTCARENOTE ---
Attempted to call report to [facility] three times without anyone picking up the phone to give report. Patient now has wheelchair van scheduled fo 1500. manager audio made aware.
[2023-11-02 15:00] VITALS: BP 120/60
== END 2023-11-02 15:18 | DRG 378 ==
LOC: 4 EAST ACU 01:09
PROVIDERS: Clinical Nurse Specialist Family Health; Internal Medicine; Nurse Practitioner; Nurse Practitioner Adult Health; ADMITTING PHYSICIAN Internal Medicine; ATTENDING PHYSICIAN Internal Medicine; EMERGENCY PHYSICIAN Student in an Organized Health Care Education/Training Program; FAMILY PHYSICIAN Internal Medicine Geriatric Medicine; OTHER PHYSICIAN Internal Medicine; OTHER PHYSICIAN Specialist
PROC: 30233N1 Transfusion of Nonautologous Red Blood Cells into Peripheral Vein, Percutaneous Approach (ICD-10-PCS; 2023-10-27)
PROC: 0W3P8ZZ Control Bleeding in Gastrointestinal Tract, Via Natural or Artificial Opening Endoscopic (ICD-10-PCS; 2023-10-27)
DX: K26.4 Chronic or unspecified duodenal ulcer with hemorrhage (principal); C79.9 Secondary malignant neoplasm of unspecified site; D62 Acute posthemorrhagic anemia; I50.20 Unspecified systolic (congestive) heart failure; E44.0 Moderate protein-calorie malnutrition; L03.115 Cellulitis of right lower limb; I50.22 Chronic systolic (congestive) heart failure; K25.4 Chronic or unspecified gastric ulcer with hemorrhage; K92.0 Hematemesis; I11.0 Hypertensive heart disease with heart failure; C61 Malignant neoplasm of prostate; Z68.28 Body mass index [BMI] 28.0-28.9, adult; E03.9 Hypothyroidism, unspecified; E11.36 Type 2 diabetes mellitus with diabetic cataract
CPT/HCPCS: 74177; 80048; 80053; 82728; 82962; 83036; 83540; 83550; 83690; 83735; 83880; 84484; 85014; 85018; 85025; 85027; 86850; 86900; 86901; 86920; 87040; 87070; 87077; 87147; 87186; 87205; 93005; 96361; 96365; 96374; 96375; 96376; 97162; 97167; 97530; 99285; P9016; Q9967

== ENCOUNTER → 2023-11-05 16:58 | Outpatient (REF) | payer OTHER, MEDICARE, BC, SELFPAY ==
[2023-11-05 18:50] LABS: ALT (SGPT) < 10 U/L (0-50); AST (SGOT) 21 U/L (17-59); Albumin 2.8 g/dl (3.5-5.0); Alkaline Phosphatase 96 U/L (38-126); Blood Urea Nitrogen 20 mg/dl (9-20); Calcium 7.4 mg/dl (8.4-10.2); Carbon Dioxide 28 mmol/L (22-30); Chloride 107 mmol/L (98-107); Glucose 105 mg/dl (70-99); Potassium 4.5 mmol/L (3.5-5.1); Sodium 141 mmol/L (135-145); Total Bilirubin 0.2 mg/dl (0.2-1.3); Total Protein 5.2 g/dl (6.3-8.2); eGFR > 60.00
[2023-11-05 18:57] LABS: Hematocrit 29.9 % (39.0-52.0); Hemoglobin 9.2 g/dL (13.0-18.0); Mean Corp Hgb Conc. 30.8 g/dL (33.0-37.0); Mean Corpuscular Hgb 30.2 pg (27.0-31.0); Mean Platelet Volume 10.1 fL (7.4-10.4); Platelet Count 476 10^3/uL (130-400); Red Blood Cell Count 3.05 10^6/uL (4.70-6.10); Red Cell Dist. Width 17.1 % (11.5-14.5); White Blood Cell Count 9.2 10^3/uL (4.8-10.8)
== END ==
LOC: OLABP 16:58
PROVIDERS: ATTENDING PHYSICIAN Family Medicine
DX: D72.829 Elevated white blood cell count, unspecified (principal); L03.115 Cellulitis of right lower limb; K92.2 Gastrointestinal hemorrhage, unspecified; I50.22 Chronic systolic (congestive) heart failure; E03.9 Hypothyroidism, unspecified; M62.81 Muscle weakness (generalized)
CPT/HCPCS: 36415; 80053; 85025

== ENCOUNTER → 2023-11-22 13:36 | Outpatient (REF) | payer MEDICARE, BC, SELFPAY ==
[2023-11-22 14:14] LABS: Hematocrit 29.9 % (39.0-52.0); Hemoglobin 9.4 g/dL (13.0-18.0); Mean Corp Hgb Conc. 31.4 g/dL (33.0-37.0); Mean Corpuscular Hgb 28.2 pg (27.0-31.0); Mean Corpuscular Volume 89.8 fL (80.0-94.0); Mean Platelet Volume 9.6 fL (7.4-10.4); Platelet Count 466 10^3/uL (130-400); Red Blood Cell Count 3.33 10^6/uL (4.70-6.10); White Blood Cell Count 9.6 10^3/uL (4.8-10.8)
[2023-11-22 14:33] LABS: ALT (SGPT) 15 U/L (0-50); AST (SGOT) 42 U/L (17-59); Albumin 3.3 g/dl (3.5-5.0); Alkaline Phosphatase 119 U/L (38-126); Blood Urea Nitrogen 25 mg/dl (9-20); Calcium 9.3 mg/dl (8.4-10.2); Carbon Dioxide 22 mmol/L (22-30); Chloride 104 mmol/L (98-107); Glucose 112 mg/dl (70-99); Sodium 139 mmol/L (135-145); Total Bilirubin 0.3 mg/dl (0.2-1.3); Total Protein 5.9 g/dl (6.3-8.2); eGFR > 60.00
== END ==
LOC: CLAB 13:36
PROVIDERS: ATTENDING PHYSICIAN Internal Medicine Geriatric Medicine; OTHER PHYSICIAN Internal Medicine Hematology & Oncology
DX: C61 Malignant neoplasm of prostate (principal); K59.00 Constipation, unspecified; M54.50 Low back pain, unspecified
CPT/HCPCS: 36415; 80053; 84153; 85027